=== PATIENT | female | born 1950 | race Caucasian/White ===

== ENCOUNTER 2017-08-03 11:30 | Inpatient (IN) ==
[2017-08-03] MEDS ORDERED: DILTIAZEM 100 MG VIAL.ADD IV ONE (11:48)
[2017-08-03] MEDS ORDERED: SODIUM CHLORIDE 0.9% 100 ML IV ONE (11:48)
[2017-08-03] MEDS ORDERED: ASPIRIN 325 MG TABLET PO STA (11:51)
[2017-08-03] MEDS ORDERED: DILTIAZEM 50 MG/10 ML VIAL IV STA (11:52)
[2017-08-03] MEDS ORDERED: DILTIAZEM INJ 100 MG in SODIUM CHLORIDE 0.9% 100 ML IV SCH (12:00)
[2017-08-03 12:10] LABS: Basophils # 0.1 10*3/uL (0.0-0.2); Basophils % 0.6 % (0.0-0.8); Eosinophils # 0.3 10*3/uL (0.0-0.87); Eosinophils % 3.5 % (0.00-10.9); Hematocrit 38.4 VOL% (35.7-47.0); Hemoglobin 12.2 GM/DL (12.0-16.0); Immature Granulocytes % 0.4 %; Immature Granulocytes Absolute 0.03 #; Lymphocytes # 3.3 10*3/uL (1.4-4.0); Lymphocytes % 38.9 % (21.3-54.2); Mean Corpuscular HGB Conc 31.8 GM/DL (32-36); Mean Corpuscular Hemoglobin 28 PG (27-34); Mean Corpuscular Volume 87.3 FL (87-102); Mean Platelet Volume 9.4 FL (9.6-12.0); Monocytes # 0.6 10*3/uL (0.11-0.8); Monocytes % 7.1 % (1.7-12.7); Neutrophils # 4.2 10*3/uL (1.4-7.4); Neutrophils % 49.5 % (38.7-73.9); Platelet Count 339 T/CUMM (130-400); Red Cell Distribution Width 15.9 % (9.3-17.3); White Blood Count 8.4 T/CUMM (4-12)
[2017-08-03] MEDS ORDERED: METOPROLOL TARTRATE 5 MG/5 ML VIAL IV ONE (12:16)
[2017-08-03 12:31] LABS: Calcium 9.1 MG/DL (8.5-10.1); Osmolality,Calculated 278.7 MOS/KG (273-304); Potassium 4.3 MMOL/L (3.5-5.1)
[2017-08-03] MEDS ORDERED: ASPIRIN 325 MG TABLET ONE (12:54)
[2017-08-03] MEDS ORDERED: METOPROLOL SUCCINATE XL 50 MG TABLET PO ONE (13:42)
[2017-08-03] MEDS ORDERED: ENOXAPARIN 80 MG/0.8 ML SYRINGE SUBCUT STA (13:42)
[2017-08-03] MEDS ORDERED: MAGNESIUM SULF RIDER 2 GM in PREMIX 1 EACH IV PRN (13:54)
[2017-08-03] MEDS ORDERED: MAGNESIUM SULF RIDER 4 GM in PREMIX 1 EACH IV PRN (13:54)
[2017-08-03] MEDS ORDERED: NON-FORMULARY MEDICATION (Tizanidine [Zanaflex] 4 MG) PO PRN (14:04)
[2017-08-03] MEDS ORDERED: FUROSEMIDE 20 MG TABLET PO PRN (14:04)
[2017-08-03] MEDS ORDERED: BUDESONIDE/FORMOTEROL 80-4.5 INHALER 6.9 GM INH PRN (14:04)
[2017-08-03] MEDS ORDERED: LIDOCAINE 5% PATCH TRANSDERM PRN (14:04)
[2017-08-03] MEDS ORDERED: DOCUSATE SODIUM 100 MG CAPSULE PO PRN (14:04)
[2017-08-03] MEDS ORDERED: NON-FORMULARY MEDICATION (Evolocumab [Repatha Syringe] 140 MG) SUBCUT SCH (14:15)
[2017-08-03] MEDS ORDERED: ENOXAPARIN 80 MG/0.8 ML SYRINGE SUBCUT ONE (14:42)
[2017-08-03] MEDS: GABAPENTIN 300 MG CAPSULE PO SCH ×2 (15:55→21:36)
[2017-08-03] MEDS ORDERED: tiZANidine 4 MG TABLET PO PRN (20:30)
[2017-08-03] MEDS ORDERED: MELOXICAM 7.5 MG TABLET PO SCH (21:00)
[2017-08-03] MEDS ORDERED: ESTRADIOL 0.5 MG PO SCH (21:00)
[2017-08-03] MEDS: HYDROmorphone 2 MG TABLET PO PRN (21:33)
[2017-08-03] MEDS: rOPINIRole 1 MG TABLET PO SCH (21:35)
[2017-08-03] MEDS: predniSONE 10 MG TABLET PO SCH (21:35)
[2017-08-03] MEDS: FOLIC ACID 1 MG TABLET PO SCH (21:35)
[2017-08-03] MEDS: LISINOPRIL 10 MG TABLET PO SCH (21:36)
[2017-08-03] MEDS: PANTOPRAZOLE 40 MG TABLET PO SCH (21:36)
[2017-08-03] MEDS: DULoxetine 30 MG CAPSULE PO SCH (21:36)
[2017-08-03] MEDS: MULTIVITAMIN (CENTRUM) TABLET PO SCH (21:37)
[2017-08-04] MEDS: oxyCODONE ER 10 MG TABLET PO PRN (06:02)
[2017-08-04] MEDS ORDERED: METOPROLOL SUCCINATE XL 50 MG TABLET PO SCH (09:00)
[2017-08-04] MEDS: PANTOPRAZOLE 40 MG TABLET PO SCH ×2 (09:29→20:12)
[2017-08-04] MEDS: rOPINIRole 1 MG TABLET PO SCH ×2 (09:29→20:12)
[2017-08-04] MEDS: ASPIRIN CHEW 81 MG TABLET PO SCH (09:29)
[2017-08-04] MEDS: GABAPENTIN 300 MG CAPSULE PO SCH ×3 (09:29→20:12)
[2017-08-04] MEDS ORDERED: SOTALOL 80 MG TABLET PO ONE (10:58)
[2017-08-04 16:40] LABS: Apearance,Urine CLEAR (Clear); Bilirubin,Urine Negative (Negative); Blood, Urine Negative (Negative); Glucose,Urine (UA) Negative (Negative); Ketones,Urine Negative (Negative); Nitrite,Urine Negative (Negative); Protein,Urine Negative; RBC,Urine 2 /HPF (0-4); Squamous Epithelial Cell,Urine Occasional /HPF (0-10); Urine Color Yellow (Yellow); WBC,Urine 5 /HPF (0-6)
[2017-08-04] MEDS: HYDROmorphone 2 MG TABLET PO PRN (20:11)
[2017-08-04] MEDS: DULoxetine 30 MG CAPSULE PO SCH (20:11)
[2017-08-04] MEDS: FOLIC ACID 1 MG TABLET PO SCH (20:12)
[2017-08-04] MEDS: SOTALOL 80 MG TABLET PO SCH (20:12)
[2017-08-04] MEDS: APIXABAN 5 MG TABLET PO SCH (20:12)
[2017-08-04] MEDS: LISINOPRIL 10 MG TABLET PO SCH (20:12)
[2017-08-04] MEDS: MULTIVITAMIN (CENTRUM) TABLET PO SCH (20:12)
[2017-08-04] MEDS: predniSONE 10 MG TABLET PO SCH (20:13)
[2017-08-04] MEDS ORDERED: ENOXAPARIN 40 MG/0.4 ML SYRINGE SUBCUT SCH (21:00)
[2017-08-05 04:49] LABS: Basophils % 0.3 % (0.0-0.8); Eosinophils # 0.1 10*3/uL (0.0-0.87); Eosinophils % 0.8 % (0.00-10.9); Hematocrit 36.6 VOL% (35.7-47.0); Hemoglobin 11.3 GM/DL (12.0-16.0); Immature Granulocytes % 0.4 %; Immature Granulocytes Absolute 0.04 #; Lymphocytes # 1.9 10*3/uL (1.4-4.0); Lymphocytes % 20.6 % (21.3-54.2); Mean Corpuscular HGB Conc 30.9 GM/DL (32-36); Mean Corpuscular Hemoglobin 27 PG (27-34); Mean Corpuscular Volume 88.2 FL (87-102); Mean Platelet Volume 9.5 FL (9.6-12.0); Monocytes # 0.5 10*3/uL (0.11-0.8); Neutrophils # 6.6 10*3/uL (1.4-7.4); Neutrophils % 72.9 % (38.7-73.9); Platelet Count 313 T/CUMM (130-400); Red Blood Count 4.15 MC/CUMM (3.8-5.5); White Blood Count 9.1 T/CUMM (4-12)
[2017-08-05 05:11] LABS: Calcium 9.4 MG/DL (8.5-10.1); Osmolality,Calculated 282.5 MOS/KG (273-304); Potassium 4.8 MMOL/L (3.5-5.1)
[2017-08-05] MEDS: rOPINIRole 1 MG TABLET PO SCH (08:41)
[2017-08-05] MEDS: PANTOPRAZOLE 40 MG TABLET PO SCH (08:41)
[2017-08-05] MEDS: GABAPENTIN 300 MG CAPSULE PO SCH (08:41)
[2017-08-05] MEDS: SOTALOL 80 MG TABLET PO SCH (08:41)
[2017-08-05] MEDS: APIXABAN 5 MG TABLET PO SCH (08:41)
[2017-08-05] MEDS: ASPIRIN CHEW 81 MG TABLET PO SCH (08:41)
[2017-08-05] MEDS: oxyCODONE ER 10 MG TABLET PO PRN (08:53)
[2017-08-05 14:09] VITALS: BP 113/63
[2017-08-10] MEDS ORDERED: METHOTREXATE PO SCH (09:00)
== END 2017-08-05 14:29 | disposition home or self-care (01) | DRG 310 ==
LOC: N.ED 11:30 → N.EDINP 13:54 → N.TELES 14:15
PROVIDERS: ADMIT Internal Medicine Cardiovascular Disease; ATTEND Internal Medicine Cardiovascular Disease

== ENCOUNTER 2017-11-29 02:49 | Observation (INO) ==
[2017-11-29] MEDS ORDERED: SODIUM CHLORIDE 0.9% 1,000 ML IV STA (03:32)
[2017-11-29 04:47] LABS: Basophils # 0.1 10*3/uL (0.0-0.2); Basophils % 0.8 % (0.0-0.8); Eosinophils # 0.3 10*3/uL (0.0-0.87); Hematocrit 33.3 VOL% (35.7-47.0); Hemoglobin 10.7 GM/DL (12.0-16.0); Immature Granulocytes % 0.3 %; Immature Granulocytes Absolute 0.02 #; Lymphocytes # 2.7 10*3/uL (1.4-4.0); Lymphocytes % 36.1 % (21.3-54.2); Mean Corpuscular HGB Conc 32.1 GM/DL (32-36); Mean Corpuscular Hemoglobin 29 PG (27-34); Mean Corpuscular Volume 90.2 FL (87-102); Mean Platelet Volume 9.6 FL (9.6-12.0); Monocytes # 0.8 10*3/uL (0.11-0.8); Monocytes % 10.2 % (1.7-12.7); Neutrophils # 3.7 10*3/uL (1.4-7.4); Neutrophils % 48.6 % (38.7-73.9); Platelet Count 265 T/CUMM (130-400); Red Blood Count 3.69 MC/CUMM (3.8-5.5); White Blood Count 7.6 T/CUMM (4-12)
[2017-11-29 04:57] LABS: PT Patient Result 10.4 SECS; Partial Thromboplastin Time 27.3 SECS (0-40)
[2017-11-29 05:12] LABS: Apearance,Urine CLEAR (Clear); Bilirubin,Urine Negative (Negative); Blood, Urine Negative (Negative); Glucose,Urine (UA) Negative (Negative); Hyaline Casts,Urine 3 /LPF (0-3); Ketones,Urine Negative (Negative); Mucus,Urine Occasional /LPF (Occasional); Nitrite,Urine Negative (Negative); Protein,Urine Negative; RBC,Urine 1 /HPF (0-4); Squamous Epithelial Cell,Urine Occasional /HPF (0-10); Urine Color Straw (Yellow); Urine Specific Gravity 1.009 (1.001-1.035); Urine Urobilinogen < 2.0 EU/DL (0.2-1.0)
[2017-11-29 05:17] LABS: Calcium 7.6 MG/DL (8.5-10.1)
[2017-11-29 05:18] LABS: Potassium 3.5 MMOL/L (3.5-5.1)
[2017-11-29] MEDS ORDERED: NITROGLYCERIN SL 0.4 MG TABLET SL PRN ×2 (06:45→09:57)
[2017-11-29] MEDS ORDERED: DOCUSATE SODIUM 100 MG CAPSULE PO PRN (09:57)
[2017-11-29] MEDS ORDERED: FUROSEMIDE 20 MG TABLET PO PRN (09:57)
[2017-11-29] MEDS ORDERED: HYDROmorphone 2 MG TABLET PO PRN (09:57)
[2017-11-29] MEDS ORDERED: BUDESONIDE/FORMOTEROL 80-4.5 INHALER 6.9 GM INH PRN (09:57)
[2017-11-29] MEDS ORDERED: LIDOCAINE 5% PATCH TRANSDERM PRN (09:57)
[2017-11-29] MEDS ORDERED: tiZANidine 4 MG TABLET PO PRN (09:57)
[2017-11-29] MEDS ORDERED: EVOLOCUMAB 140 MG SUBCUT SCH (10:00)
[2017-11-29] MEDS ORDERED: ERGOCALCIFEROL 50,000 UNIT CAPSULE PO SCH (10:00)
[2017-11-29] MEDS ORDERED: METHOTREXATE 2.5 MG TABLET PO SCH (10:00)
[2017-11-29] MEDS ORDERED: ALUMINUM/MAGNES/SIMETH MAX STR 30 ML UDCUP PO PRN (10:05)
[2017-11-29] MEDS ORDERED: ZALEPLON 5 MG CAPSULE PO PRN (10:05)
[2017-11-29] MEDS: GABAPENTIN 300 MG CAPSULE PO SCH ×2 (15:07→21:03)
[2017-11-29] MEDS ORDERED: ZALEPLON 5 MG CAPSULE PO SCH (21:00)
[2017-11-29] MEDS ORDERED: DULoxetine 30 MG CAPSULE PO SCH (21:00)
[2017-11-29] MEDS ORDERED: FOLIC ACID 1 MG TABLET PO SCH (21:00)
[2017-11-29] MEDS ORDERED: ESTRADIOL 1 MG TABLET PO SCH (21:00)
[2017-11-29] MEDS ORDERED: MELOXICAM 7.5 MG TABLET PO SCH (21:00)
[2017-11-29] MEDS: rOPINIRole 1 MG TABLET PO SCH (21:02)
[2017-11-29] MEDS: PANTOPRAZOLE 40 MG TABLET PO SCH (21:03)
[2017-11-29] MEDS: APIXABAN 5 MG TABLET PO SCH (21:03)
[2017-11-29] MEDS: traMADol 50 MG TABLET PO SCH (21:05)
[2017-11-30] MEDS: GABAPENTIN 300 MG CAPSULE PO SCH (08:46)
[2017-11-30] MEDS: traMADol 50 MG TABLET PO SCH (08:46)
[2017-11-30] MEDS: rOPINIRole 1 MG TABLET PO SCH (08:46)
[2017-11-30] MEDS: APIXABAN 5 MG TABLET PO SCH (08:47)
[2017-11-30] MEDS: PANTOPRAZOLE 40 MG TABLET PO SCH (08:47)
[2017-11-30] MEDS ORDERED: ASPIRIN CHEW 81 MG TABLET PO SCH (09:00)
[2017-11-30] MEDS ORDERED: CELECOXIB 200 MG CAPSULE PO SCH (09:00)
[2017-11-30 12:57] VITALS: BP 141/86
[2017-11-30] MEDS ORDERED: VERAPAMIL SR 180 MG TABLET PO SCH (13:00)
== END 2017-11-30 14:02 | disposition home or self-care (01) ==
LOC: EDBD → EDUNIT# → N.ED 02:49 → N.EDINP 02:49 → N.TELES 06:13
PROVIDERS: ADMIT Internal Medicine Cardiovascular Disease; ATTEND Internal Medicine Cardiovascular Disease

== ENCOUNTER 2019-03-31 12:19 | Inpatient (IN) ==
[2019-03-31 14:43] LABS: Apearance,Urine CLOUDY (Clear); Bacteria,Urine Occasional /HPF (Few); Bilirubin,Urine Negative (Negative); Blood, Urine Small mg/dL (Negative); Glucose,Urine (UA) Negative (Negative); Hyaline Casts,Urine 54 /LPF (0-3); Ketones,Urine Negative (Negative); Mucus,Urine Few /LPF (Occasional); Nitrite,Urine Negative (Negative); Protein,Urine 30 MG/DL; RBC,Urine 20 /HPF (0-4); Squamous Epithelial Cell,Urine Many /HPF (0-10); Urine Color Amber (Yellow); Urine Specific Gravity 1.027 (1.001-1.035); Urine Urobilinogen < 2.0 EU/DL (0.2-1.0); WBC,Urine 27 /HPF (0-6)
[2019-03-31 15:27] LABS: Basophils % 0.2 % (0.0-0.8); Eosinophils % 0.1 % (0.00-10.9); Hematocrit 52.4 VOL% (35.7-47.0); Hemoglobin 16.7 GM/DL (12.0-16.0); Immature Granulocytes % 0.5 %; Immature Granulocytes Absolute 0.09 #; Lymphocytes # 2.9 10*3/uL (1.4-4.0); Lymphocytes % 17.3 % (21.3-54.2); Mean Corpuscular HGB Conc 31.9 GM/DL (32-36); Mean Corpuscular Volume 95.6 FL (87-102); Mean Platelet Volume 10.3 FL (9.6-12.0); Monocytes % 7.9 % (1.7-12.7); Platelet Count 171 T/CUMM (130-400); Red Blood Count 5.48 MC/CUMM (3.8-5.5); Red Cell Distribution Width 14.1 % (9.3-17.3); White Blood Count 16.5 T/CUMM (4-12)
[2019-03-31] MEDS ORDERED: LEVOFLOXACIN INJ 500 MG in PREMIX 1 EACH IV STA (15:35)
[2019-03-31] MEDS ORDERED: LEVOFLOXACIN INJ 100 ML IV ONE (15:43)
[2019-03-31 15:49] LABS: Albumin 2.8 G/DL (3.4-5.0); Bilirubin,Total 0.4 MG/DL (0.2-1.0); Calcium 8.1 MG/DL (8.5-10.1); Osmolality,Calculated 280.1 MOS/KG (273-304); Total Protein 6.4 G/DL (6.4-8.3)
[2019-03-31] MEDS ORDERED: LACTATED RINGERS 1,000 ML IV ONE (16:00)
[2019-03-31] MEDS ORDERED: HYDROmorphone 2 MG/1 ML VIAL IV STA ×2 (17:19→18:13)
[2019-03-31] MEDS ORDERED: LACTATED RINGERS IV ONE (18:35)
[2019-03-31] MEDS ORDERED: DEXTROSE 50% 25 GM/50 ML VIAL IV PRN (20:09)
[2019-03-31] MEDS ORDERED: GLUCAGON 1 MG VIAL IM PRN (20:09)
[2019-03-31] MEDS ORDERED: ZOLPIDEM 5 MG TABLET PO PRN (20:22)
[2019-03-31] MEDS ORDERED: LIDOCAINE 5% PATCH TRANSDERM PRN (20:22)
[2019-03-31] MEDS ORDERED: OSELTAMIVIR 75 MG CAPSULE PO SCH (20:30)
[2019-03-31] MEDS: INSULIN LISPRO 100 UNIT/ML SUBCUT SCH (21:50)
[2019-03-31] MEDS: DULoxetine 30 MG CAPSULE PO SCH (22:08)
[2019-03-31] MEDS: ESTRADIOL 1 MG TABLET PO SCH (22:08)
[2019-03-31] MEDS: SODIUM CHLORIDE 0.9% 1,000 ML IV SCH (22:08)
[2019-03-31] MEDS: rOPINIRole 1 MG TABLET PO SCH (22:08)
[2019-03-31] MEDS: GABAPENTIN 300 MG CAPSULE PO SCH (22:08)
[2019-03-31] MEDS: PIPERACILLIN/TAZOBACTAM 3,375 MG in SODIUM CHLORIDE 0.9% 100 ML IV SCH (22:09)
[2019-03-31] MEDS: MORPHINE 4 MG/1 ML VIAL IV PRN (23:43)
[2019-04-01] MEDS: ALBUTEROL/IPRATROPIUM 3 ML NEB RESP TX SCH ×4 (00:22→18:53)
[2019-04-01 03:16] LABS: Hemoglobin 14.4 GM/DL (12.0-16.0); Immature Granulocytes % 0.3 %; Immature Granulocytes Absolute 0.05 #; Platelet Count 158 T/CUMM (130-400); Red Cell Distribution Width 13.9 % (9.3-17.3)
[2019-04-01 03:22] LABS: Basophils # 0.1 10*3/uL (0.0-0.2); Basophils % 0.3 % (0.0-0.8); Eosinophils % 0.2 % (0.00-10.9); Hematocrit 44.7 VOL% (35.7-47.0); Lymphocytes # 3.8 10*3/uL (1.4-4.0); Lymphocytes % 25.8 % (21.3-54.2); Mean Corpuscular HGB Conc 32.2 GM/DL (32-36); Mean Corpuscular Volume 94.5 FL (87-102); Mean Platelet Volume 9.4 FL (9.6-12.0); Neutrophils % 63.4 % (38.7-73.9); Red Blood Count 4.73 MC/CUMM (3.8-5.5); White Blood Count 14.7 T/CUMM (4-12)
[2019-04-01 03:41] LABS: Calcium 7.5 MG/DL (8.5-10.1); Osmolality,Calculated 278.4 MOS/KG (273-304)
[2019-04-01] MEDS: PIPERACILLIN/TAZOBACTAM 3,375 MG in SODIUM CHLORIDE 0.9% 100 ML IV SCH (05:55)
[2019-04-01] MEDS ORDERED: ZALEPLON 5 MG CAPSULE PO PRN (07:30)
[2019-04-01] MEDS: MORPHINE 4 MG/1 ML VIAL IV PRN (07:44)
[2019-04-01] MEDS: ONDANSETRON 4 MG/2 ML VIAL IV PRN ×2 (07:57→16:47)
[2019-04-01] MEDS: INSULIN LISPRO 100 UNIT/ML SUBCUT SCH ×4 (08:21→22:35)
[2019-04-01] MEDS: FEXOFENADINE 180 MG TABLET PO SCH (09:24)
[2019-04-01] MEDS: rOPINIRole 1 MG TABLET PO SCH ×2 (09:24→21:12)
[2019-04-01] MEDS: ASPIRIN CHEW 81 MG TABLET PO SCH (09:25)
[2019-04-01] MEDS: PANTOPRAZOLE 40 MG TABLET PO SCH (09:25)
[2019-04-01] MEDS: GABAPENTIN 300 MG CAPSULE PO SCH ×3 (09:25→21:11)
[2019-04-01] MEDS: VERAPAMIL SR 180 MG TABLET PO SCH (09:25)
[2019-04-01] MEDS ORDERED: PHENOL 1.4% THROAT SPRAY 177 ML BOTTLE PO PRN (10:35)
[2019-04-01] MEDS: cefTRIAXone 1,000 MG in SYRINGE 1 EACH IV SCH (10:56)
[2019-04-01] MEDS: OSELTAMIVIR 75 MG CAPSULE PO SCH ×2 (11:01→21:12)
[2019-04-01] MEDS ORDERED: IBUPROFEN 600 MG TABLET PO PRN (11:53)
[2019-04-01 12:07] LABS: Alanine Aminotransferase 54 U/L (13-56); Albumin 1.9 G/DL (3.4-5.0); Alkaline Phosphatase 71 U/L (45-117); Aspartate Amino Transferase 177 U/L (0-37); Bilirubin,Direct < 0.100 MG/DL (0.0-0.20); Bilirubin,Indirect 0.3 MG/DL (0.0-1.0); Total Protein 5.1 G/DL (6.4-8.3)
[2019-04-01] MEDS: SODIUM CHLORIDE 0.9% 1,000 ML IV SCH ×2 (14:03→22:35)
[2019-04-01] MEDS: ESTRADIOL 1 MG TABLET PO SCH (21:11)
[2019-04-01] MEDS: DULoxetine 30 MG CAPSULE PO SCH (21:11)
[2019-04-01] MEDS: ACETAMINOPHEN 325 MG TABLET PO PRN (22:36)
[2019-04-02] MEDS: ALBUTEROL/IPRATROPIUM 3 ML NEB RESP TX SCH ×3 (00:14→13:55)
[2019-04-02] MEDS: ONDANSETRON 4 MG/2 ML VIAL IV PRN ×2 (01:40→07:07)
[2019-04-02] MEDS: ACETAMINOPHEN 325 MG TABLET PO PRN (04:40)
[2019-04-02] MEDS: INSULIN LISPRO 100 UNIT/ML SUBCUT SCH ×3 (07:15→15:44)
[2019-04-02] MEDS: SODIUM CHLORIDE 0.9% 1,000 ML IV SCH ×2 (07:28→15:11)
[2019-04-02] MEDS: rOPINIRole 1 MG TABLET PO SCH (09:14)
[2019-04-02] MEDS: GABAPENTIN 300 MG CAPSULE PO SCH ×2 (09:14→15:11)
[2019-04-02] MEDS: FEXOFENADINE 180 MG TABLET PO SCH (09:14)
[2019-04-02] MEDS: PANTOPRAZOLE 40 MG TABLET PO SCH (09:15)
[2019-04-02] MEDS: VERAPAMIL SR 180 MG TABLET PO SCH (09:15)
[2019-04-02] MEDS: OSELTAMIVIR 75 MG CAPSULE PO SCH (09:15)
[2019-04-02] MEDS: cefTRIAXone 1,000 MG in SYRINGE 1 EACH IV SCH (09:15)
[2019-04-02] MEDS: ASPIRIN CHEW 81 MG TABLET PO SCH (09:15)
[2019-04-02] MEDS ORDERED: SCOPOLAMINE 1.5 MG PATCH TRANSDERM ONE (11:00)
[2019-04-02] MEDS ORDERED: PROMETHAZINE 25 MG/1 ML VIAL IM PRN (13:11)
[2019-04-02 16:19] VITALS: BP 114/68
[2019-04-03] MEDS ORDERED: METHOTREXATE 2.5 MG TABLET PO SCH (09:00)
== END 2019-04-02 19:02 | disposition home or self-care (01) | DRG 690 ==
LOC: N.ED 12:19 → N.EDINP 20:09 → N.2E 21:29
PROVIDERS: ADMIT Internal Medicine; ATTEND Internal Medicine

== ENCOUNTER 2019-04-14 12:51 | Inpatient (IN) ==
[2019-04-14] MEDS ORDERED: DILTIAZEM 50 MG/10 ML VIAL IV STA (13:33)
[2019-04-14] MEDS ORDERED: dilTIAZem Drip 125 MG/125 ML PREMIX IV ONE (13:34)
[2019-04-14] MEDS: dilTIAZem Drip 125 MG/125 ML PREMIX IV SCH ×2 (13:47→20:31)
[2019-04-14 14:04] LABS: Albumin 3.8 G/DL (3.4-5.0); Bilirubin,Total 0.9 MG/DL (0.2-1.0); Calcium 9.3 MG/DL (8.5-10.1); Osmolality,Calculated 279.4 MOS/KG (273-304); Total Protein 7.3 G/DL (6.4-8.3)
[2019-04-14 14:18] LABS: Basophils # 0.1 10*3/uL (0.0-0.2); Basophils % 1.3 % (0.0-0.8); Eosinophils # 0.2 10*3/uL (0.0-0.87); Eosinophils % 1.9 % (0.00-10.9); Hematocrit 36.2 VOL% (35.7-47.0); Hemoglobin 11.6 GM/DL (12.0-16.0); Immature Granulocytes % 0.6 %; Immature Granulocytes Absolute 0.05 #; Lymphocytes # 2.7 10*3/uL (1.4-4.0); Lymphocytes % 30.1 % (21.3-54.2); Mean Corpuscular Volume 96.3 FL (87-102); Mean Platelet Volume 9.8 FL (9.6-12.0); Monocytes % 7.6 % (1.7-12.7); Neutrophils % 58.5 % (38.7-73.9); Platelet Count 373 T/CUMM (130-400); Red Blood Count 3.76 MC/CUMM (3.8-5.5); Red Cell Distribution Width 14.4 % (9.3-17.3); White Blood Count 8.8 T/CUMM (4-12)
[2019-04-14 14:23] LABS: PT Patient Result 10.5 SECS (9.6-12.2)
[2019-04-14] MEDS ORDERED: FUROSEMIDE 40 MG/4 ML VIAL IV STA (14:35)
[2019-04-14] MEDS ORDERED: MAGNESIUM SULF RIDER 4 GM in PREMIX 1 EACH IV PRN (14:42)
[2019-04-14] MEDS ORDERED: MAGNESIUM SULF RIDER 2 GM in PREMIX 1 EACH IV PRN (14:42)
[2019-04-14] MEDS ORDERED: ZALEPLON 5 MG CAPSULE PO PRN (14:42)
[2019-04-14] MEDS ORDERED: DOCUSATE SODIUM 100 MG CAPSULE PO PRN (14:42)
[2019-04-14] MEDS ORDERED: ACETAMINOPHEN 325 MG TABLET PO PRN (14:42)
[2019-04-14] MEDS ORDERED: POTASSIUM CHLORIDE 20 MEQ TABLET PO PRN (14:57)
[2019-04-14] MEDS ORDERED: LEVALBUTEROL 0.63 MG/3 ML NEB RESP TX PRN (15:09)
[2019-04-14] MEDS ORDERED: PHENOL 1.4% THROAT SPRAY 177 ML BOTTLE PO PRN (15:13)
[2019-04-14] MEDS ORDERED: LIDOCAINE 5% PATCH TRANSDERM PRN (15:13)
[2019-04-14] MEDS ORDERED: EVOLOCUMAB 140 MG SUBCUT SCH (15:15)
[2019-04-14 16:24] LABS: Troponin I < 0.015 NG/ML (0.00-0.045)
[2019-04-14] MEDS: ASPIRIN CHEW 81 MG TABLET PO SCH (16:24)
[2019-04-14] MEDS: FUROSEMIDE 20 MG/2 ML VIAL IV SCH (16:28)
[2019-04-14] MEDS: ENOXAPARIN 100 MG/ML SYRINGE SUBCUT SCH (16:28)
[2019-04-14] MEDS: PANTOPRAZOLE 40 MG TABLET PO SCH (16:28)
[2019-04-14 19:15] LABS: Troponin I < 0.015 NG/ML (0.00-0.045)
[2019-04-14] MEDS: DULoxetine 30 MG CAPSULE PO SCH (20:23)
[2019-04-14] MEDS: ESTRADIOL 1 MG TABLET PO SCH (20:24)
[2019-04-14] MEDS: rOPINIRole 1 MG TABLET PO SCH (20:24)
[2019-04-14] MEDS: ZALEPLON 5 MG CAPSULE PO SCH (20:24)
[2019-04-14] MEDS: ASCORBIC ACID 500 MG TABLET PO SCH (20:24)
[2019-04-14] MEDS: GABAPENTIN 300 MG CAPSULE PO SCH (20:25)
[2019-04-14 21:27] LABS: Troponin I < 0.015 NG/ML (0.00-0.045)
[2019-04-14] MEDS: ONDANSETRON 4 MG/2 ML VIAL IV PRN (23:17)
[2019-04-15] MEDS: NITROGLYCERIN SL 0.4 MG TABLET SL PRN ×2 (01:19→01:25)
[2019-04-15] MEDS ORDERED: MORPHINE 4 MG/1 ML VIAL IV PRN (01:33)
[2019-04-15] MEDS: ENOXAPARIN 100 MG/ML SYRINGE SUBCUT SCH ×2 (02:03→16:13)
[2019-04-15] MEDS ORDERED: METOPROLOL SUCCINATE XL 25 MG TABLET PO ONE (02:14)
[2019-04-15 02:19] LABS: Basophils # 0.1 10*3/uL (0.0-0.2); Basophils % 0.9 % (0.0-0.8); Eosinophils # 0.3 10*3/uL (0.0-0.87); Eosinophils % 2.6 % (0.00-10.9); Hematocrit 36.5 VOL% (35.7-47.0); Hemoglobin 11.4 GM/DL (12.0-16.0); Immature Granulocytes % 0.4 %; Immature Granulocytes Absolute 0.05 #; Lymphocytes # 4.9 10*3/uL (1.4-4.0); Lymphocytes % 40.3 % (21.3-54.2); Mean Corpuscular HGB Conc 31.2 GM/DL (32-36); Mean Corpuscular Volume 97.9 FL (87-102); Mean Platelet Volume 9.1 FL (9.6-12.0); Monocytes % 8.6 % (1.7-12.7); NRBC # 0.02 10*3/uL; Neutrophils % 47.2 % (38.7-73.9); Platelet Count 374 T/CUMM (130-400); Red Blood Count 3.73 MC/CUMM (3.8-5.5); Red Cell Distribution Width 14.2 % (9.3-17.3); White Blood Count 12.2 T/CUMM (4-12)
[2019-04-15 02:45] LABS: Osmolality,Calculated 280.5 MOS/KG (273-304); Risk Ratio 7.72; VLDL CHOLESTEROL 55.2 MG/DL
[2019-04-15] MEDS ORDERED: METOPROLOL TARTRATE 5 MG/5 ML VIAL IV ONE (03:27)
[2019-04-15] MEDS ORDERED: PANTOPRAZOLE 40 MG TABLET PO ONE (03:28)
[2019-04-15] MEDS ORDERED: diphenhydrAMINE 50 MG/1 ML VIAL IV ONE (03:28)
[2019-04-15] MEDS: ONDANSETRON 4 MG/2 ML VIAL IV PRN ×2 (05:54→11:45)
[2019-04-15] MEDS: dilTIAZem Drip 125 MG/125 ML PREMIX IV SCH (07:25)
[2019-04-15] MEDS: FUROSEMIDE 20 MG/2 ML VIAL IV SCH ×2 (09:07→16:14)
[2019-04-15] MEDS: rOPINIRole 1 MG TABLET PO SCH ×2 (09:07→20:32)
[2019-04-15] MEDS: PANTOPRAZOLE 40 MG TABLET PO SCH (09:08)
[2019-04-15] MEDS: SPIRONOLACTONE 25 MG TABLET PO SCH (09:08)
[2019-04-15] MEDS: DULoxetine 30 MG CAPSULE PO SCH ×2 (09:08→20:32)
[2019-04-15] MEDS: ASCORBIC ACID 500 MG TABLET PO SCH ×2 (09:09→20:34)
[2019-04-15] MEDS: VERAPAMIL SR 180 MG TABLET PO SCH (09:09)
[2019-04-15] MEDS: ASPIRIN CHEW 81 MG TABLET PO SCH (09:09)
[2019-04-15] MEDS: GABAPENTIN 300 MG CAPSULE PO SCH ×2 (09:10→20:33)
[2019-04-15] MEDS: FOLIC ACID 1 MG TABLET PO SCH (09:15)
[2019-04-15] MEDS ORDERED: POTASSIUM CHLORIDE RIDER 10 MEQ in PREMIX 1 EACH IV PRN (14:13)
[2019-04-15] MEDS ORDERED: MAGNESIUM SULF RIDER 2 GM in PREMIX 1 EACH IV PRN (14:13)
[2019-04-15] MEDS ORDERED: diphenhydrAMINE CAP 25 MG CAPSULE PO ONE (14:13)
[2019-04-15] MEDS ORDERED: DIAZEPAM 5 MG TABLET PO ONE (14:13)
[2019-04-15] MEDS ORDERED: SODIUM CHLORIDE 0.45% 1,000 ML IV SCH (14:30)
[2019-04-15] MEDS ORDERED: LIDOCAINE 1% 20 ML VIAL ONE (14:57)
[2019-04-15] MEDS ORDERED: MIDAZOLAM 2 MG/2 ML VIAL ONE (15:00)
[2019-04-15] MEDS ORDERED: fentaNYL 100 MCG/2 ML VIAL ONE (15:00)
[2019-04-15] MEDS ORDERED: ADENOSINE 90 MG/30 ML VIAL IV ONE (15:44)
[2019-04-15] MEDS ORDERED: HEPARIN 5,000 UNIT/1 ML VIAL ONE (15:48)
[2019-04-15] MEDS: ESTRADIOL 1 MG TABLET PO SCH (20:33)
[2019-04-15] MEDS: ZALEPLON 5 MG CAPSULE PO SCH (20:34)
[2019-04-16] MEDS: dilTIAZem Drip 125 MG/125 ML PREMIX IV SCH (01:17)
[2019-04-16 05:48] LABS: Basophils # 0.1 10*3/uL (0.0-0.2); Basophils % 0.8 % (0.0-0.8); Eosinophils # 0.4 10*3/uL (0.0-0.87); Eosinophils % 5.7 % (0.00-10.9); Hematocrit 32.5 VOL% (35.7-47.0); Hemoglobin 10.2 GM/DL (12.0-16.0); Immature Granulocytes % 0.4 %; Immature Granulocytes Absolute 0.03 #; Lymphocytes # 2.5 10*3/uL (1.4-4.0); Lymphocytes % 32.2 % (21.3-54.2); Mean Corpuscular HGB Conc 31.4 GM/DL (32-36); Mean Corpuscular Volume 97.3 FL (87-102); Mean Platelet Volume 9.7 FL (9.6-12.0); Monocytes % 9.9 % (1.7-12.7); Platelet Count 328 T/CUMM (130-400); Red Blood Count 3.34 MC/CUMM (3.8-5.5); Red Cell Distribution Width 14.2 % (9.3-17.3); White Blood Count 7.8 T/CUMM (4-12)
[2019-04-16 06:20] LABS: Albumin 2.9 G/DL (3.4-5.0); Bilirubin,Total 0.6 MG/DL (0.2-1.0); Calcium 8.1 MG/DL (8.5-10.1); Osmolality,Calculated 278.8 MOS/KG (273-304); Total Protein 6.2 G/DL (6.4-8.3)
[2019-04-16] MEDS: DULoxetine 30 MG CAPSULE PO SCH (09:31)
[2019-04-16] MEDS: rOPINIRole 1 MG TABLET PO SCH (09:31)
[2019-04-16] MEDS: VERAPAMIL SR 180 MG TABLET PO SCH (09:31)
[2019-04-16] MEDS: ASPIRIN CHEW 81 MG TABLET PO SCH (09:31)
[2019-04-16] MEDS: FOLIC ACID 1 MG TABLET PO SCH (09:32)
[2019-04-16] MEDS: ASCORBIC ACID 500 MG TABLET PO SCH (09:32)
[2019-04-16] MEDS: GABAPENTIN 300 MG CAPSULE PO SCH (09:32)
[2019-04-16] MEDS: PANTOPRAZOLE 40 MG TABLET PO SCH (09:32)
[2019-04-16] MEDS: FUROSEMIDE 20 MG/2 ML VIAL IV SCH (09:32)
[2019-04-16] MEDS: SPIRONOLACTONE 25 MG TABLET PO SCH (09:32)
[2019-04-16 11:17] VITALS: BP 128/66
[2019-04-17] MEDS ORDERED: METHOTREXATE 2.5 MG TABLET PO SCH (15:13)
== END 2019-04-16 12:30 | disposition home or self-care (01) | DRG 286 ==
LOC: EDBD → EDUNIT# → N.ED 12:51 → N.EDINP 12:51 → N.TELEN 15:17
PROVIDERS: ADMIT Internal Medicine Cardiovascular Disease; ATTEND Internal Medicine Cardiovascular Disease
PROC: CLCCHCL (ICD-10-PCS; 2019-04-15 14:15)

== ENCOUNTER 2019-04-29 22:37 | Observation (INO) ==
[2019-04-29] MEDS ORDERED: MAGNESIUM SULF RIDER 2 GM in PREMIX 1 EACH IV PRN (22:50)
[2019-04-29] MEDS ORDERED: ONDANSETRON 4 MG/2 ML VIAL IV PRN (22:50)
[2019-04-29] MEDS ORDERED: ZALEPLON 5 MG CAPSULE PO PRN (22:50)
[2019-04-29] MEDS ORDERED: BISACODYL 5 MG TABLET PO PRN (22:50)
[2019-04-29] MEDS ORDERED: MAGNESIUM SULF RIDER 4 GM in PREMIX 1 EACH IV PRN (22:50)
[2019-04-29] MEDS ORDERED: ENOXAPARIN 40 MG/0.4 ML SYRINGE SUBCUT SCH (23:00)
[2019-04-29] MEDS ORDERED: NITROGLYCERIN SL 0.4 MG TABLET SL PRN (23:04)
[2019-04-30] MEDS ORDERED: tiZANidine 4 MG TABLET PO PRN ×2 (00:48→09:50)
[2019-04-30] MEDS ORDERED: AMITRIPTYLINE 50 MG TABLET PO SCH (00:53)
[2019-04-30 00:59] LABS: CKMB % 1.7 %; Troponin I < 0.015 NG/ML (0.00-0.045)
[2019-04-30] MEDS ORDERED: ENOXAPARIN 100 MG/ML SYRINGE SUBCUT SCH ×2 (01:00→03:00)
[2019-04-30] MEDS: rOPINIRole 1 MG TABLET PO SCH ×3 (01:09→20:23)
[2019-04-30] MEDS: DULoxetine 30 MG CAPSULE PO SCH ×3 (01:11→20:16)
[2019-04-30] MEDS: GABAPENTIN 300 MG CAPSULE PO SCH ×3 (01:12→20:16)
[2019-04-30] MEDS: ESTRADIOL 1 MG TABLET PO SCH ×2 (02:10→09:54)
[2019-04-30 02:21] LABS: Apearance,Urine CLEAR (Clear); Bilirubin,Urine Negative (Negative); Blood, Urine Negative (Negative); Glucose,Urine (UA) Negative (Negative); Ketones,Urine Negative (Negative); Nitrite,Urine Negative (Negative); Protein,Urine Negative; RBC,Urine <1 /HPF (0-4); Squamous Epithelial Cell,Urine Occasional /HPF (0-10); Urine Color Yellow (Yellow); Urine Specific Gravity 1.017 (1.001-1.035); Urine Urobilinogen < 2.0 EU/DL (0.2-1.0); WBC,Urine 1 /HPF (0-6)
[2019-04-30 02:59] LABS: Basophils # 0.1 10*3/uL (0.0-0.2); Basophils % 0.6 % (0.0-0.8); Eosinophils # 0.4 10*3/uL (0.0-0.87); Eosinophils % 4.5 % (0.00-10.9); Hematocrit 35.9 VOL% (35.7-47.0); Hemoglobin 11.2 GM/DL (12.0-16.0); Immature Granulocytes % 0.4 %; Immature Granulocytes Absolute 0.03 #; Lymphocytes # 3.3 10*3/uL (1.4-4.0); Lymphocytes % 40.8 % (21.3-54.2); Mean Corpuscular HGB Conc 31.2 GM/DL (32-36); Mean Corpuscular Volume 95.5 FL (87-102); Mean Platelet Volume 9.4 FL (9.6-12.0); Neutrophils % 41.7 % (38.7-73.9); Platelet Count 212 T/CUMM (130-400); Red Blood Count 3.76 MC/CUMM (3.8-5.5); Red Cell Distribution Width 13.8 % (9.3-17.3); White Blood Count 8.1 T/CUMM (4-12)
[2019-04-30] MEDS ORDERED: ALBUTEROL 2.5 MG/3 ML NEB RESP TX PRN (03:00)
[2019-04-30 03:23] LABS: Albumin 3.1 G/DL (3.4-5.0); Bilirubin,Total 0.4 MG/DL (0.2-1.0); Calcium 8.7 MG/DL (8.5-10.1); Osmolality,Calculated 279.5 MOS/KG (273-304); Risk Ratio 7.1; Total Protein 6.3 G/DL (6.4-8.3); VLDL CHOLESTEROL 54.2 MG/DL
[2019-04-30 03:24] LABS: CKMB % 1.7 %; Troponin I < 0.015 NG/ML (0.00-0.045)
[2019-04-30 06:47] LABS: CKMB % 1.7 %; Troponin I < 0.015 NG/ML (0.00-0.045)
[2019-04-30] MEDS ORDERED: ROPINIROLE 2 MG PO SCH (09:00)
[2019-04-30] MEDS ORDERED: FLUTICASONE/SALMETEROL 100-50 DISKUS 14 DOSE INH PRN ×2 (09:00→09:50)
[2019-04-30] MEDS: dilTIAZem Drip 125 MG/125 ML PREMIX IV SCH (09:21)
[2019-04-30] MEDS ORDERED: FUROSEMIDE 20 MG TABLET PO PRN (09:50)
[2019-04-30] MEDS ORDERED: LIDOCAINE 5% PATCH TRANSDERM PRN (09:50)
[2019-04-30] MEDS ORDERED: PHENOL 1.4% THROAT SPRAY 177 ML BOTTLE PO PRN (09:50)
[2019-04-30] MEDS: ASPIRIN CHEW 81 MG TABLET PO SCH (09:53)
[2019-04-30] MEDS: DRONEDARONE 400 MG TABLET PO SCH ×2 (09:54→17:14)
[2019-04-30] MEDS: PANTOPRAZOLE 40 MG TABLET PO SCH (09:54)
[2019-04-30] MEDS ORDERED: EVOLOCUMAB 140 MG SUBCUT SCH (10:00)
[2019-04-30] MEDS: ASCORBIC ACID 500 MG TABLET PO SCH ×2 (11:23→20:16)
[2019-04-30] MEDS: VERAPAMIL SR 120 MG TABLET PO SCH (11:23)
[2019-04-30] MEDS: APIXABAN 5 MG TABLET PO SCH (20:16)
[2019-04-30] MEDS ORDERED: ESTRADIOL 1 MG TABLET PO SCH (21:00)
[2019-05-01] MEDS: dilTIAZem Drip 125 MG/125 ML PREMIX IV SCH (02:38)
[2019-05-01 05:27] LABS: Basophils # 0.1 10*3/uL (0.0-0.2); Basophils % 0.7 % (0.0-0.8); Eosinophils # 0.5 10*3/uL (0.0-0.87); Eosinophils % 6.5 % (0.00-10.9); Hematocrit 35.9 VOL% (35.7-47.0); Hemoglobin 11.3 GM/DL (12.0-16.0); Immature Granulocytes % 0.4 %; Immature Granulocytes Absolute 0.03 #; Mean Corpuscular HGB Conc 31.5 GM/DL (32-36); Mean Platelet Volume 9.4 FL (9.6-12.0); Neutrophils % 43.4 % (38.7-73.9); Platelet Count 218 T/CUMM (130-400); Red Blood Count 3.74 MC/CUMM (3.8-5.5); White Blood Count 7.5 T/CUMM (4-12)
[2019-05-01 05:55] LABS: Calcium 8.8 MG/DL (8.5-10.1); Osmolality,Calculated 279.4 MOS/KG (273-304)
[2019-05-01] MEDS ORDERED: FOLIC ACID 1 MG TABLET PO SCH (09:00)
[2019-05-01] MEDS ORDERED: SPIRONOLACTONE 25 MG TABLET PO SCH (09:00)
[2019-05-01] MEDS: PANTOPRAZOLE 40 MG TABLET PO SCH (09:02)
[2019-05-01] MEDS: GABAPENTIN 300 MG CAPSULE PO SCH (09:02)
[2019-05-01] MEDS: ASPIRIN CHEW 81 MG TABLET PO SCH (09:02)
[2019-05-01] MEDS: DULoxetine 30 MG CAPSULE PO SCH (09:02)
[2019-05-01] MEDS: ESTRADIOL 1 MG TABLET PO SCH (09:03)
[2019-05-01] MEDS: ASCORBIC ACID 500 MG TABLET PO SCH (09:04)
[2019-05-01] MEDS: rOPINIRole 1 MG TABLET PO SCH (09:04)
[2019-05-01] MEDS: DRONEDARONE 400 MG TABLET PO SCH ×2 (09:04→16:50)
[2019-05-01] MEDS: VERAPAMIL SR 120 MG TABLET PO SCH (09:05)
[2019-05-01] MEDS: APIXABAN 5 MG TABLET PO SCH (09:05)
[2019-05-01] MEDS ORDERED: METHOTREXATE 2.5 MG TABLET PO SCH (09:50)
[2019-05-01 16:31] VITALS: BP 132/62
== END 2019-05-01 17:27 | disposition home or self-care (01) ==
LOC: N.TELEN
PROVIDERS: ADMIT Internal Medicine Cardiovascular Disease; ATTEND Internal Medicine Cardiovascular Disease

== ENCOUNTER 2021-10-01 05:36 | Inpatient (IN) ==
[2021-09-27 12:38] LABS: Bilirubin,Urine Negative (Negative); Blood, Urine Negative (Negative); Glucose,Urine (UA) Negative (Negative); Ketones,Urine Negative (Negative); Mucus,Urine Occasional /LPF (Occasional); Nitrite,Urine Negative (Negative); Protein,Urine Negative (Negative); RBC,Urine 1 /HPF (0-4); Squamous Epithelial Cell,Urine Occasional /HPF (0-10); Urine Appearance Clear (Clear); Urine Color Yellow (Yellow); Urine Urobilinogen 0.2 eU/dL (<2.0); Urine pH 5.5 (4.5-8.0)
[2021-09-27 12:42] LABS: Basophils # 0.1 10*3/uL (0.0-0.2); Basophils % 0.7 % (0.0-0.8); Eosinophils # 0.2 10*3/uL (0.0-0.87); Eosinophils % 2.6 % (0.00-10.9); Hematocrit 39.8 VOL% (35.7-47.0); Hemoglobin 12.6 GM/DL (12.0-16.0); Immature Granulocytes % 0.3 %; Immature Granulocytes Absolute 0.02 #; Lymphocytes # 2.9 10*3/uL (1.4-4.0); Lymphocytes % 37.8 % (21.3-54.2); Mean Corpuscular HGB Conc 31.7 GM/DL (32-36); Mean Corpuscular Volume 91.3 FL (87-102); Mean Platelet Volume 9.7 FL (9.6-12.0); Monocytes # 0.7 10*3/uL (0.11-0.8); Monocytes % 9.4 % (1.7-12.7); Neutrophils % 49.2 % (38.7-73.9); Platelet Count 315 T/CUMM (130-400); Red Blood Count 4.36 MC/CUMM (3.8-5.5); Red Cell Distribution Width 13.7 % (9.3-17.3); White Blood Count 7.7 T/CUMM (4-12)
[2021-09-27 12:55] LABS: INR 0.9; PT Patient Result 10.5 SECS (10.5-12.0); Partial Thromboplastin Time 28.4 SECS (23.8-32.1)
[2021-09-27 13:03] LABS: Alanine Aminotransferase 36 U/L (13-56); Albumin 3.6 G/DL (3.4-5.0); Alkaline Phosphatase 118 U/L (45-117); Aspartate Amino Transferase 26 U/L (0-37); Bilirubin,Total < 0.39 MG/DL (0.20-1.00); Blood Urea Nitrogen 16 MG/DL (7-18); Calcium 9.1 MG/DL (8.5-10.1); Carbon Dioxide 29 MMOL/L (21-32); Chloride 104 MMOL/L (98-107); Estimated Glom Filtration Rate 102 ML/MIN; Glucose 73 MG/DL (74-106); Osmolality,Calculated 278.4 MOS/KG (273-304); Potassium 4.4 MMOL/L (3.5-5.1); Sodium 140 MMOL/L (136-145); Total Protein 7.4 G/DL (6.4-8.2)
[2021-10-01] MEDS ORDERED: VANCOMYCIN INJ 1,000 MG in SODIUM CHLORIDE 0.9% 250 ML IV ONE (06:30)
[2021-10-01] MEDS ORDERED: FAMOTIDINE 20 MG TABLET PO ONE (08:00)
[2021-10-01] MEDS ORDERED: GABAPENTIN 400 MG CAPSULE PO ONE (08:00)
[2021-10-01] MEDS ORDERED: ACETAMINOPHEN 500 MG TABLET PO ONE (08:00)
[2021-10-01] MEDS ORDERED: DIAZEPAM 5 MG TABLET PO ONE (08:00)
[2021-10-01] MEDS ORDERED: LACTATED RINGERS 1,000 ML IV SCH (08:00)
[2021-10-01] MEDS ORDERED: ONDANSETRON 4 MG/2 ML VIAL IV PRN ×2 (12:31→14:29)
[2021-10-01] MEDS ORDERED: MAGNESIUM HYDROXIDE SUSP 30 ML UDCUP PO PRN (12:31)
[2021-10-01] MEDS ORDERED: LACTULOSE 20 GM/30 ML UDCUP PO PRN (12:31)
[2021-10-01] MEDS ORDERED: PROMETHAZINE 25 MG/1 ML VIAL IM PRN (12:31)
[2021-10-01] MEDS ORDERED: BISACODYL 10 MG SUPP RECTAL PRN (12:31)
[2021-10-01] MEDS ORDERED: FLUTICASONE/SALMETEROL 100-50 DISKUS 14 DOSE INH PRN (12:34)
[2021-10-01] MEDS ORDERED: NITROGLYCERIN SL 0.4 MG TABLET SL PRN (12:34)
[2021-10-01] MEDS ORDERED: MORPHINE 2 MG/1 ML SYRINGE IV PRN (12:42)
[2021-10-01] MEDS ORDERED: HYDROmorphone 1 MG/1 ML SYRINGE ONE (14:23)
[2021-10-01] MEDS: HYDROmorphone 1 MG/1 ML SYRINGE IV PRN ×4 (14:25→15:05)
[2021-10-01] MEDS ORDERED: ALBUTEROL 2.5 MG/3 ML NEB RESP TX PRN (14:32)
[2021-10-01] MEDS ORDERED: ALBUTEROL/IPRATROPIUM 3 ML NEB RESP TX ONE (14:54)
[2021-10-01] MEDS: GABAPENTIN 300 MG CAPSULE PO SCH ×2 (16:53→21:11)
[2021-10-01] MEDS: ceFAZolin 2,000 MG/50 ML DUPLEX IV SCH (18:34)
[2021-10-01] MEDS: MORPHINE 2 MG/1 ML SYRINGE IV PRN (21:09)
[2021-10-01] MEDS: DOCUSATE SODIUM 100 MG CAPSULE PO SCH (21:10)
[2021-10-01] MEDS: tiZANidine 4 MG TABLET PO PRN (21:10)
[2021-10-01] MEDS: APIXABAN 5 MG TABLET PO SCH (21:10)
[2021-10-01] MEDS: DULoxetine 30 MG CAPSULE PO SCH (21:11)
[2021-10-01] MEDS: diphenhydrAMINE CAP 25 MG CAPSULE PO PRN (21:52)
[2021-10-01] MEDS: TEMAZEPAM 7.5 MG CAPSULE PO PRN (22:59)
[2021-10-02] MEDS: MORPHINE 2 MG/1 ML SYRINGE IV PRN ×4 (00:11→18:12)
[2021-10-02] MEDS: TEMAZEPAM 7.5 MG CAPSULE PO PRN ×2 (00:13→21:27)
[2021-10-02] MEDS: ceFAZolin 2,000 MG/50 ML DUPLEX IV SCH (01:01)
[2021-10-02 05:40] LABS: Basophils % 0.3 % (0.0-0.8); Hematocrit 28.2 VOL% (35.7-47.0); Hemoglobin 9.1 GM/DL (12.0-16.0); Immature Granulocytes % 0.5 %; Immature Granulocytes Absolute 0.07 #; Lymphocytes # 2.6 10*3/uL (1.4-4.0); Lymphocytes % 19.5 % (21.3-54.2); Mean Corpuscular HGB Conc 32.3 GM/DL (32-36); Mean Corpuscular Volume 91.9 FL (87-102); Mean Platelet Volume 9.2 FL (9.6-12.0); Monocytes % 7.5 % (1.7-12.7); Neutrophils % 72.2 % (38.7-73.9); Platelet Count 240 T/CUMM (130-400); Red Blood Count 3.07 MC/CUMM (3.8-5.5); White Blood Count 13.4 T/CUMM (4-12)
[2021-10-02 06:10] LABS: Osmolality,Calculated 275.1 MOS/KG (273-304); Potassium 4.9 MMOL/L (3.5-5.1)
[2021-10-02] MEDS: ASPIRIN EC 81 MG TABLET PO SCH (08:27)
[2021-10-02] MEDS: GABAPENTIN 300 MG CAPSULE PO SCH ×3 (08:27→21:27)
[2021-10-02] MEDS: DOCUSATE SODIUM 100 MG CAPSULE PO SCH ×2 (08:27→21:27)
[2021-10-02] MEDS: DULoxetine 30 MG CAPSULE PO SCH ×2 (08:27→21:27)
[2021-10-02] MEDS: VALSARTAN 80 MG TABLET PO SCH (08:27)
[2021-10-02] MEDS: APIXABAN 5 MG TABLET PO SCH ×2 (08:27→21:27)
[2021-10-02] MEDS: LEVALBUTEROL 0.63 MG/3 ML NEB RESP TX SCH ×4 (11:21→23:50)
[2021-10-02] MEDS: DRONEDARONE 400 MG TABLET PO SCH ×2 (12:06→18:13)
[2021-10-02] MEDS: tiZANidine 4 MG TABLET PO PRN (19:49)
[2021-10-02] MEDS: VERAPAMIL SR 180 MG TABLET PO SCH (21:27)
[2021-10-03] MEDS: MORPHINE 2 MG/1 ML SYRINGE IV PRN ×3 (00:39→10:50)
[2021-10-03] MEDS: ZALEPLON 5 MG CAPSULE PO PRN (00:41)
[2021-10-03] MEDS: diphenhydrAMINE CAP 25 MG CAPSULE PO PRN (00:41)
[2021-10-03] MEDS: LEVALBUTEROL 0.63 MG/3 ML NEB RESP TX SCH ×2 (04:06→07:28)
[2021-10-03 05:32] LABS: Basophils % 0.3 % (0.0-0.8); Eosinophils # 0.2 10*3/uL (0.0-0.87); Eosinophils % 1.6 % (0.00-10.9); Immature Granulocytes % 0.5 %; Immature Granulocytes Absolute 0.07 #; Lymphocytes # 3.8 10*3/uL (1.4-4.0); Lymphocytes % 27.1 % (21.3-54.2); Mean Corpuscular Volume 91.5 FL (87-102); Mean Platelet Volume 9.2 FL (9.6-12.0); Monocytes # 1.2 10*3/uL (0.11-0.8); Monocytes % 8.3 % (1.7-12.7); Neutrophils % 62.2 % (38.7-73.9); Platelet Count 237 T/CUMM (130-400); Red Blood Count 3.17 MC/CUMM (3.8-5.5); White Blood Count 14.1 T/CUMM (4-12)
[2021-10-03] MEDS: APIXABAN 5 MG TABLET PO SCH ×2 (08:15→21:09)
[2021-10-03] MEDS: DOCUSATE SODIUM 100 MG CAPSULE PO SCH ×2 (08:15→21:09)
[2021-10-03] MEDS: DRONEDARONE 400 MG TABLET PO SCH ×2 (08:15→17:15)
[2021-10-03] MEDS: DULoxetine 30 MG CAPSULE PO SCH ×2 (08:15→21:09)
[2021-10-03] MEDS: VALSARTAN 80 MG TABLET PO SCH (08:15)
[2021-10-03] MEDS: GABAPENTIN 300 MG CAPSULE PO SCH ×3 (08:15→21:09)
[2021-10-03] MEDS: VERAPAMIL SR 180 MG TABLET PO SCH ×2 (08:15→21:09)
[2021-10-03] MEDS: ASPIRIN EC 81 MG TABLET PO SCH (08:15)
[2021-10-03] MEDS: FUROSEMIDE 20 MG TABLET PO PRN (14:49)
[2021-10-03] MEDS: LEVALBUTEROL 0.63 MG/3 ML NEB RESP TX PRN (15:06)
[2021-10-04] MEDS: VERAPAMIL SR 180 MG TABLET PO SCH ×2 (09:11→20:30)
[2021-10-04] MEDS: VALSARTAN 80 MG TABLET PO SCH (09:11)
[2021-10-04] MEDS: GABAPENTIN 300 MG CAPSULE PO SCH ×3 (09:11→20:30)
[2021-10-04] MEDS: ASPIRIN EC 81 MG TABLET PO SCH (09:11)
[2021-10-04] MEDS: APIXABAN 5 MG TABLET PO SCH ×2 (09:11→20:30)
[2021-10-04] MEDS: DRONEDARONE 400 MG TABLET PO SCH ×2 (09:11→16:28)
[2021-10-04] MEDS: DULoxetine 30 MG CAPSULE PO SCH ×2 (09:11→20:30)
[2021-10-04] MEDS: DOCUSATE SODIUM 100 MG CAPSULE PO SCH ×2 (09:18→20:30)
[2021-10-04 15:41] LABS: Bacteria,Urine Occasional /HPF (Few); Hyaline Casts,Urine 1 /LPF (0-3); Mucus,Urine Occasional /LPF (Occasional); RBC,Urine 2 /HPF (0-4); Squamous Epithelial Cell,Urine Occasional /HPF (0-10); Urine Appearance Clear (Clear); Urine Color Yellow (Yellow)
[2021-10-04 15:42] LABS: Bilirubin,Urine Negative (Negative); Blood, Urine Negative (Negative); Glucose,Urine (UA) Negative (Negative); Ketones,Urine Negative (Negative); Nitrite,Urine Negative (Negative); Protein,Urine Negative (Negative); Urine Specific Gravity 1.015 (1.001-1.035); Urine Urobilinogen 0.2 eU/dL (<2.0)
[2021-10-04 16:37] LABS: Basophils % 0.3 % (0.0-0.8); Eosinophils # 0.4 10*3/uL (0.0-0.87); Eosinophils % 2.6 % (0.00-10.9); Hematocrit 25.4 VOL% (35.7-47.0); Hemoglobin 7.8 GM/DL (12.0-16.0); Immature Granulocytes % 0.8 %; Immature Granulocytes Absolute 0.11 #; Lymphocytes # 3.2 10*3/uL (1.4-4.0); Lymphocytes % 23.4 % (21.3-54.2); Mean Corpuscular HGB Conc 30.7 GM/DL (32-36); Mean Corpuscular Volume 94.1 FL (87-102); Mean Platelet Volume 9.1 FL (9.6-12.0); Monocytes % 7.4 % (1.7-12.7); Neutrophils % 65.5 % (38.7-73.9); Platelet Count 247 T/CUMM (130-400); Red Cell Distribution Width 14.5 % (9.3-17.3); White Blood Count 13.7 T/CUMM (4-12)
[2021-10-04 17:01] LABS: Calcium 8.2 MG/DL (8.5-10.1); Osmolality,Calculated 279.2 MOS/KG (273-304); Potassium 4.6 MMOL/L (3.5-5.1)
[2021-10-04] MEDS: POLYETHYLENE GLYCOL POWDER 17 GM PACK PO SCH (18:29)
[2021-10-04 18:40] LABS: Folate 9.36 NG/ML (5.38-24.0)
[2021-10-04 18:45] LABS: Basophils % 0.2 % (0.0-0.8); Eosinophils # 0.3 10*3/uL (0.0-0.87); Eosinophils % 2.4 % (0.00-10.9); Hematocrit 25.1 VOL% (35.7-47.0); Hemoglobin 7.7 GM/DL (12.0-16.0); Immature Granulocytes % 0.6 %; Immature Granulocytes Absolute 0.09 #; Lymphocytes # 3.2 10*3/uL (1.4-4.0); Lymphocytes % 23.2 % (21.3-54.2); Mean Corpuscular HGB Conc 30.7 GM/DL (32-36); Mean Corpuscular Volume 93.3 FL (87-102); Monocytes # 1.1 10*3/uL (0.11-0.8); Monocytes % 7.6 % (1.7-12.7); Platelet Count 248 T/CUMM (130-400); Red Blood Count 2.69 MC/CUMM (3.8-5.5); Red Cell Distribution Width 14.4 % (9.3-17.3); White Blood Count 13.9 T/CUMM (4-12)
[2021-10-04 19:07] LABS: % Iron Saturation 6.2 % (18-50)
[2021-10-04 19:22] LABS: Vitamin B12 242 PG/ML (211-911)
[2021-10-04 20:00] LABS: Anemia Profile Interpretation 104
[2021-10-04] MEDS: LACTATED RINGERS 1,000 ML IV SCH (20:30)
[2021-10-04] MEDS ORDERED: SODIUM CHLORIDE 0.9% 1,000 ML IV PRN (21:02)
[2021-10-04 21:23] LABS: Hematocrit 24.5 VOL% (35.7-47.0); Hemoglobin 7.9 GM/DL (12.0-16.0)
[2021-10-05] MEDS: ACETAMINOPHEN 325 MG TABLET PO PRN (03:50)
[2021-10-05 05:06] LABS: Basophils % 0.3 % (0.0-0.8); Eosinophils # 0.3 10*3/uL (0.0-0.87); Eosinophils % 2.7 % (0.00-10.9); Hematocrit 27.3 VOL% (35.7-47.0); Hemoglobin 8.5 GM/DL (12.0-16.0); Immature Granulocytes % 0.7 %; Immature Granulocytes Absolute 0.09 #; Lymphocytes # 3.3 10*3/uL (1.4-4.0); Lymphocytes % 26.3 % (21.3-54.2); Mean Corpuscular HGB Conc 31.1 GM/DL (32-36); Mean Corpuscular Volume 91.3 FL (87-102); Mean Platelet Volume 9.1 FL (9.6-12.0); Monocytes % 7.8 % (1.7-12.7); Neutrophils % 62.2 % (38.7-73.9); Platelet Count 234 T/CUMM (130-400); Red Blood Count 2.99 MC/CUMM (3.8-5.5); Red Cell Distribution Width 14.5 % (9.3-17.3); White Blood Count 12.4 T/CUMM (4-12)
[2021-10-05 05:27] LABS: Albumin 2.4 G/DL (3.4-5.0); Bilirubin,Total 0.7 MG/DL (0.20-1.00); Calcium 8.5 MG/DL (8.5-10.1); Osmolality,Calculated 280.2 MOS/KG (273-304); Potassium 4.2 MMOL/L (3.5-5.1)
[2021-10-05] MEDS: ASPIRIN EC 81 MG TABLET PO SCH (09:18)
[2021-10-05] MEDS: POLYETHYLENE GLYCOL POWDER 17 GM PACK PO SCH (09:18)
[2021-10-05] MEDS: APIXABAN 5 MG TABLET PO SCH ×2 (09:18→20:35)
[2021-10-05] MEDS: GABAPENTIN 300 MG CAPSULE PO SCH ×3 (09:18→20:35)
[2021-10-05] MEDS: DRONEDARONE 400 MG TABLET PO SCH ×2 (09:18→16:05)
[2021-10-05] MEDS: DOCUSATE SODIUM 100 MG CAPSULE PO SCH ×2 (09:18→20:35)
[2021-10-05] MEDS: DULoxetine 30 MG CAPSULE PO SCH ×2 (09:18→20:35)
[2021-10-05] MEDS: VALSARTAN 80 MG TABLET PO SCH ×2 (09:18→09:33)
[2021-10-05] MEDS: VERAPAMIL SR 180 MG TABLET PO SCH ×3 (09:18→20:35)
[2021-10-05 09:26] LABS: Hemoglobin A1 (Alkaline) 97.8 % (96.5-98.5); Hemoglobin A2 (Alkaline) 2.2 % (1.5-3.5)
[2021-10-05] MEDS: CHOLECALCIFEROL 5,000 UNIT TABLET PO SCH (12:08)
[2021-10-05] MEDS: FERROUS SULFATE 325 MG TABLET PO SCH (16:05)
[2021-10-05] MEDS ORDERED: CYANOCOBALAMIN 500 MCG TABLET PO ONE (18:00)
[2021-10-05] MEDS: LACTATED RINGERS 1,000 ML IV SCH (20:35)
[2021-10-06] MEDS: traMADol 50 MG TABLET PO PRN (05:35)
[2021-10-06 08:37] LABS: Basophils % 0.3 % (0.0-0.8); Eosinophils # 0.4 10*3/uL (0.0-0.87); Eosinophils % 3.5 % (0.00-10.9); Hematocrit 25.5 VOL% (35.7-47.0); Hemoglobin 7.9 GM/DL (12.0-16.0); Immature Granulocytes % 0.6 %; Immature Granulocytes Absolute 0.07 #; Lymphocytes # 2.3 10*3/uL (1.4-4.0); Lymphocytes % 20.7 % (21.3-54.2); Mean Corpuscular Volume 90.4 FL (87-102); Mean Platelet Volume 8.7 FL (9.6-12.0); Monocytes # 0.8 10*3/uL (0.11-0.8); Neutrophils % 67.9 % (38.7-73.9); Platelet Count 236 T/CUMM (130-400); Red Blood Count 2.82 MC/CUMM (3.8-5.5); Red Cell Distribution Width 14.3 % (9.3-17.3)
[2021-10-06] MEDS: DULoxetine 30 MG CAPSULE PO SCH ×2 (08:50→20:38)
[2021-10-06] MEDS: VERAPAMIL SR 180 MG TABLET PO SCH ×2 (08:50→20:38)
[2021-10-06] MEDS: GABAPENTIN 300 MG CAPSULE PO SCH ×3 (08:50→20:38)
[2021-10-06] MEDS: DOCUSATE SODIUM 100 MG CAPSULE PO SCH ×2 (08:50→20:38)
[2021-10-06] MEDS: FERROUS SULFATE 325 MG TABLET PO SCH ×2 (08:50→16:51)
[2021-10-06] MEDS: DRONEDARONE 400 MG TABLET PO SCH ×2 (08:50→16:51)
[2021-10-06] MEDS: CYANOCOBALAMIN 500 MCG TABLET PO SCH (08:50)
[2021-10-06] MEDS: ASPIRIN EC 81 MG TABLET PO SCH (08:50)
[2021-10-06] MEDS: APIXABAN 5 MG TABLET PO SCH ×2 (08:50→20:38)
[2021-10-06] MEDS: CHOLECALCIFEROL 5,000 UNIT TABLET PO SCH (08:50)
[2021-10-06] MEDS: POLYETHYLENE GLYCOL POWDER 17 GM PACK PO SCH (08:51)
[2021-10-06 09:03] LABS: Calcium 7.9 MG/DL (8.5-10.1); Osmolality,Calculated 282.7 MOS/KG (273-304); Potassium 4.5 MMOL/L (3.5-5.1)
[2021-10-06] MEDS: LACTATED RINGERS 1,000 ML IV SCH ×2 (12:13→23:16)
[2021-10-06] MEDS: cefTRIAXone 2,000 MG in SODIUM CHLORIDE 0.9% 100 ML IV SCH (15:26)
[2021-10-07 05:53] LABS: Calcium 8.5 MG/DL (8.5-10.1); Osmolality,Calculated 275.8 MOS/KG (273-304); Potassium 4.1 MMOL/L (3.5-5.1)
[2021-10-07] MEDS: CYANOCOBALAMIN 500 MCG TABLET PO SCH (09:00)
[2021-10-07] MEDS: APIXABAN 5 MG TABLET PO SCH ×2 (09:00→20:57)
[2021-10-07] MEDS: DULoxetine 30 MG CAPSULE PO SCH ×2 (09:00→20:56)
[2021-10-07] MEDS: DRONEDARONE 400 MG TABLET PO SCH ×2 (09:00→16:36)
[2021-10-07] MEDS: FERROUS SULFATE 325 MG TABLET PO SCH ×2 (09:00→16:36)
[2021-10-07] MEDS: GABAPENTIN 300 MG CAPSULE PO SCH ×3 (09:00→20:56)
[2021-10-07] MEDS: VERAPAMIL SR 180 MG TABLET PO SCH ×2 (09:00→20:56)
[2021-10-07] MEDS: CHOLECALCIFEROL 5,000 UNIT TABLET PO SCH (09:00)
[2021-10-07] MEDS: POLYETHYLENE GLYCOL POWDER 17 GM PACK PO SCH (09:00)
[2021-10-07] MEDS: ASPIRIN EC 81 MG TABLET PO SCH (09:00)
[2021-10-07] MEDS: DOCUSATE SODIUM 100 MG CAPSULE PO SCH ×2 (09:00→20:56)
[2021-10-07 12:47] LABS: Basophils % 0.2 % (0.0-0.8); Eosinophils # 0.3 10*3/uL (0.0-0.87); Hemoglobin 8.1 GM/DL (12.0-16.0); Immature Granulocytes % 0.7 %; Immature Granulocytes Absolute 0.07 #; Lymphocytes % 19.6 % (21.3-54.2); Mean Corpuscular HGB Conc 31.2 GM/DL (32-36); Mean Corpuscular Volume 90.9 FL (87-102); Monocytes # 0.9 10*3/uL (0.11-0.8); Monocytes % 8.9 % (1.7-12.7); Neutrophils % 67.6 % (38.7-73.9); Platelet Count 280 T/CUMM (130-400); Red Blood Count 2.86 MC/CUMM (3.8-5.5); Red Cell Distribution Width 14.2 % (9.3-17.3); White Blood Count 10.4 T/CUMM (4-12)
[2021-10-07] MEDS: cefTRIAXone 2,000 MG in SODIUM CHLORIDE 0.9% 100 ML IV SCH (14:04)
[2021-10-07] MEDS: LACTATED RINGERS 1,000 ML IV SCH (14:06)
[2021-10-07] MEDS: ZALEPLON 5 MG CAPSULE PO PRN (20:56)
[2021-10-08] MEDS: LACTATED RINGERS 1,000 ML IV SCH (03:05)
[2021-10-08 06:09] LABS: Basophils # 0.1 10*3/uL (0.0-0.2); Basophils % 0.5 % (0.0-0.8); Eosinophils # 0.4 10*3/uL (0.0-0.87); Eosinophils % 3.8 % (0.00-10.9); Hematocrit 24.8 VOL% (35.7-47.0); Hemoglobin 7.7 GM/DL (12.0-16.0); Immature Granulocytes % 0.9 %; Immature Granulocytes Absolute 0.09 #; Lymphocytes # 2.4 10*3/uL (1.4-4.0); Lymphocytes % 23.8 % (21.3-54.2); Mean Corpuscular Volume 91.2 FL (87-102); Monocytes % 9.6 % (1.7-12.7); Neutrophils % 61.4 % (38.7-73.9); Platelet Count 287 T/CUMM (130-400); Red Blood Count 2.72 MC/CUMM (3.8-5.5); Red Cell Distribution Width 14.1 % (9.3-17.3)
[2021-10-08 06:35] LABS: Calcium 8.5 MG/DL (8.5-10.1); Osmolality,Calculated 277.7 MOS/KG (273-304); Potassium 3.8 MMOL/L (3.5-5.1)
[2021-10-08] MEDS ORDERED: SODIUM CHLORIDE 0.9% 1,000 ML IV PRN (07:26)
[2021-10-08 08:23] LABS: Sedimentation Rate-Westergren 104 MM/HR (0-30)
[2021-10-08] MEDS: GABAPENTIN 300 MG CAPSULE PO SCH ×3 (08:44→21:17)
[2021-10-08] MEDS: FUROSEMIDE 20 MG TABLET PO PRN (08:44)
[2021-10-08] MEDS: CYANOCOBALAMIN 500 MCG TABLET PO SCH (08:45)
[2021-10-08] MEDS: APIXABAN 5 MG TABLET PO SCH ×2 (08:45→21:17)
[2021-10-08] MEDS: ASPIRIN EC 81 MG TABLET PO SCH (08:47)
[2021-10-08] MEDS: FERROUS SULFATE 325 MG TABLET PO SCH ×2 (08:47→17:26)
[2021-10-08] MEDS: CHOLECALCIFEROL 5,000 UNIT TABLET PO SCH (08:47)
[2021-10-08] MEDS: VERAPAMIL SR 180 MG TABLET PO SCH ×2 (08:47→21:18)
[2021-10-08] MEDS: DOCUSATE SODIUM 100 MG CAPSULE PO SCH ×2 (08:48→21:18)
[2021-10-08] MEDS: DULoxetine 30 MG CAPSULE PO SCH ×2 (08:48→21:18)
[2021-10-08] MEDS: DRONEDARONE 400 MG TABLET PO SCH ×2 (09:19→17:26)
[2021-10-08] MEDS: POLYETHYLENE GLYCOL POWDER 17 GM PACK PO SCH (09:20)
[2021-10-08] MEDS: LEVALBUTEROL 0.63 MG/3 ML NEB RESP TX PRN (13:37)
[2021-10-08] MEDS ORDERED: FUROSEMIDE 20 MG/2 ML VIAL IV ONE (16:57)
[2021-10-08] MEDS: traMADol 50 MG TABLET PO PRN (17:26)
[2021-10-08] MEDS: ZALEPLON 5 MG CAPSULE PO PRN (21:17)
[2021-10-08] MEDS: tiZANidine 4 MG TABLET PO PRN (21:18)
[2021-10-09] MEDS: ACETAMINOPHEN 325 MG TABLET PO PRN (00:32)
[2021-10-09] MEDS: traMADol 50 MG TABLET PO PRN (00:33)
[2021-10-09 06:22] LABS: Basophils % 0.4 % (0.0-0.8); Eosinophils # 0.4 10*3/uL (0.0-0.87); Eosinophils % 3.8 % (0.00-10.9); Hematocrit 28.1 VOL% (35.7-47.0); Hemoglobin 9.1 GM/DL (12.0-16.0); Immature Granulocytes % 0.9 %; Immature Granulocytes Absolute 0.08 #; Lymphocytes # 1.8 10*3/uL (1.4-4.0); Lymphocytes % 19.3 % (21.3-54.2); Mean Corpuscular HGB Conc 32.4 GM/DL (32-36); Mean Corpuscular Volume 88.9 FL (87-102); Mean Platelet Volume 8.5 FL (9.6-12.0); Monocytes # 0.7 10*3/uL (0.11-0.8); Monocytes % 7.9 % (1.7-12.7); Neutrophils % 67.7 % (38.7-73.9); Platelet Count 285 T/CUMM (130-400); Red Blood Count 3.16 MC/CUMM (3.8-5.5); White Blood Count 9.4 T/CUMM (4-12)
[2021-10-09] MEDS: ASPIRIN EC 81 MG TABLET PO SCH (08:54)
[2021-10-09] MEDS: DULoxetine 30 MG CAPSULE PO SCH (08:54)
[2021-10-09] MEDS: DOCUSATE SODIUM 100 MG CAPSULE PO SCH (08:55)
[2021-10-09] MEDS: VERAPAMIL SR 180 MG TABLET PO SCH (08:55)
[2021-10-09] MEDS: DRONEDARONE 400 MG TABLET PO SCH (08:55)
[2021-10-09] MEDS: GABAPENTIN 300 MG CAPSULE PO SCH (08:55)
[2021-10-09] MEDS: CHOLECALCIFEROL 5,000 UNIT TABLET PO SCH (08:55)
[2021-10-09] MEDS: FERROUS SULFATE 325 MG TABLET PO SCH (08:55)
[2021-10-09] MEDS: CYANOCOBALAMIN 500 MCG TABLET PO SCH (08:55)
[2021-10-09] MEDS: POLYETHYLENE GLYCOL POWDER 17 GM PACK PO SCH (08:55)
[2021-10-09] MEDS: APIXABAN 5 MG TABLET PO SCH (08:55)
[2021-10-09 11:54] VITALS: BP 123/71
== END 2021-10-09 14:09 | disposition swing bed (61) | DRG 469 ==
LOC: N.OR 05:36 → N.SDSINP 05:37 → N.3E 15:33
PROVIDERS: ADMIT Orthopaedic Surgery; ATTEND Orthopaedic Surgery

== ENCOUNTER 2021-12-20 23:25 | Inpatient (IN) ==
[2021-12-21] MEDS ORDERED: HYDROmorphone 1 MG/1 ML SYRINGE IV STA (04:51)
[2021-12-21] MEDS ORDERED: PANTOPRAZOLE 40 MG VIAL IV STA (04:51)
[2021-12-21] MEDS ORDERED: ONDANSETRON 4 MG/2 ML VIAL IV STA (04:51)
[2021-12-21] MEDS ORDERED: SODIUM CHLORIDE 0.9% 500 ML IV STA (04:51)
[2021-12-21 06:14] LABS: Basophils # 0.1 10*3/uL (0.0-0.2); Basophils % 0.7 % (0.0-0.8); Eosinophils # 0.1 10*3/uL (0.0-0.87); Eosinophils % 1.7 % (0.00-10.9); Hematocrit 36.5 VOL% (35.7-47.0); Hemoglobin 11.1 GM/DL (12.0-16.0); Immature Granulocytes % 0.6 %; Immature Granulocytes Absolute 0.04 #; Lymphocytes # 1.8 10*3/uL (1.4-4.0); Lymphocytes % 25.1 % (21.3-54.2); Mean Corpuscular HGB Conc 30.4 GM/DL (32-36); Mean Corpuscular Volume 92.9 FL (87-102); Mean Platelet Volume 10.3 FL (9.6-12.0); Monocytes # 0.8 10*3/uL (0.11-0.8); Monocytes % 10.8 % (1.7-12.7); Neutrophils % 61.1 % (38.7-73.9); Platelet Count 158 T/CUMM (130-400); Red Blood Count 3.93 MC/CUMM (3.8-5.5); Red Cell Distribution Width 16.6 % (9.3-17.3); White Blood Count 7.1 T/CUMM (4-12)
[2021-12-21 06:24] LABS: Albumin 3.3 G/DL (3.4-5.0); Bilirubin,Total 1.8 MG/DL (0.20-1.00); Calcium 9.4 MG/DL (8.5-10.1); Osmolality,Calculated 278.4 MOS/KG (273-304); Potassium 4.8 MMOL/L (3.5-5.1); Total Protein 6.7 G/DL (6.4-8.2)
[2021-12-21] MEDS ORDERED: DILTIAZEM 25 MG/5 ML VIAL IV STA (09:49)
[2021-12-21] MEDS ORDERED: GLUCAGON 1 MG VIAL IM PRN (09:54)
[2021-12-21] MEDS ORDERED: ACETAMINOPHEN 325 MG TABLET PO PRN (09:54)
[2021-12-21] MEDS ORDERED: ONDANSETRON 4 MG/2 ML VIAL IV PRN (09:54)
[2021-12-21] MEDS ORDERED: DEXTROSE 10% 250 ML BAG IV PRN (09:59)
[2021-12-21] MEDS: DILTIAZEM INJ 100 MG in SODIUM CHLORIDE 0.9% 100 ML IV SCH ×2 (10:32→22:06)
[2021-12-21] MEDS: VERAPAMIL SR 180 MG TABLET PO SCH (12:00)
[2021-12-21 12:05] LABS: Mucus,Urine Few /LPF (Occasional); Squamous Epithelial Cell,Urine Occasional /HPF (0-10)
[2021-12-21 12:06] LABS: Bilirubin,Urine Small mg/dL (Negative); Blood, Urine Small mg/dL (Negative); Glucose,Urine (UA) Negative (Negative); Ketones,Urine Trace mg/dL (Negative); Nitrite,Urine Negative (Negative); Protein,Urine Trace mg/dL (Negative); Urine Appearance Clear (Clear); Urine Color Yellow (Yellow); Urine pH 5.5 (4.5-8.0)
[2021-12-21] MEDS: INSULIN LISPRO 100 UNIT/ML SUBCUT SCH ×3 (12:59→21:06)
[2021-12-21 13:36] LABS: Hepatitis B Core IgM Quant < 0.05 Index; Hepatitis B Surface Ag Quant < 0.10 Index; Hepatitis B Surface Ag Result Non-Reactive (NonReactive); Hepatitis C Virus Ab Quant 0.12 Index; Hepatitis C Virus Ab Result Non-Reactive (NonReactive)
[2021-12-21] MEDS: metroNIDAZOLE INJ 500 MG/100 ML PREMIX IV SCH (15:29)
[2021-12-21] MEDS: DRONEDARONE 400 MG TABLET PO SCH ×2 (15:29→17:15)
[2021-12-21] MEDS ORDERED: tiZANidine 4 MG TABLET PO PRN (17:45)
[2021-12-21] MEDS: DULoxetine 30 MG CAPSULE PO SCH (21:04)
[2021-12-21] MEDS: GABAPENTIN 300 MG CAPSULE PO SCH (21:05)
[2021-12-21] MEDS: DICYCLOMINE 20 MG TABLET PO SCH (21:24)
[2021-12-22] MEDS: traMADol 50 MG TABLET PO PRN ×2 (00:33→09:34)
[2021-12-22] MEDS: VERAPAMIL SR 180 MG TABLET PO SCH ×3 (00:33→22:01)
[2021-12-22] MEDS: metroNIDAZOLE INJ 500 MG/100 ML PREMIX IV SCH ×2 (03:02→14:49)
[2021-12-22 04:47] LABS: Basophils % 0.4 % (0.0-0.8); Eosinophils % 0.4 % (0.00-10.9); Hematocrit 35.7 VOL% (35.7-47.0); Immature Granulocytes % 0.6 %; Immature Granulocytes Absolute 0.06 #; Lymphocytes # 1.4 10*3/uL (1.4-4.0); Lymphocytes % 14.7 % (21.3-54.2); Mean Corpuscular HGB Conc 30.8 GM/DL (32-36); Mean Corpuscular Volume 92.2 FL (87-102); Mean Platelet Volume 9.9 FL (9.6-12.0); Monocytes # 0.9 10*3/uL (0.11-0.8); Monocytes % 9.1 % (1.7-12.7); NRBC # 0.02 10*3/uL; Neutrophils % 74.8 % (38.7-73.9); Platelet Count 154 T/CUMM (130-400); Red Blood Count 3.87 MC/CUMM (3.8-5.5); Red Cell Distribution Width 16.6 % (9.3-17.3); White Blood Count 9.6 T/CUMM (4-12)
[2021-12-22 05:06] LABS: Calcium 8.3 MG/DL (8.5-10.1); Osmolality,Calculated 275.8 MOS/KG (273-304); Potassium 5.1 MMOL/L (3.5-5.1)
[2021-12-22] MEDS: DILTIAZEM INJ 100 MG in SODIUM CHLORIDE 0.9% 100 ML IV SCH ×2 (06:57→17:50)
[2021-12-22] MEDS ORDERED: FUROSEMIDE 40 MG/4 ML VIAL IV ONE (07:57)
[2021-12-22] MEDS: INSULIN LISPRO 100 UNIT/ML SUBCUT SCH ×4 (08:19→22:01)
[2021-12-22] MEDS ORDERED: VALSARTAN 80 MG TABLET PO SCH (09:00)
[2021-12-22] MEDS: APIXABAN 5 MG TABLET PO SCH ×2 (09:33→22:00)
[2021-12-22] MEDS: DULoxetine 30 MG CAPSULE PO SCH ×2 (09:33→22:00)
[2021-12-22] MEDS: GABAPENTIN 300 MG CAPSULE PO SCH ×3 (09:33→22:00)
[2021-12-22] MEDS: DICYCLOMINE 20 MG TABLET PO SCH ×2 (09:40→22:00)
[2021-12-23] MEDS: metroNIDAZOLE INJ 500 MG/100 ML PREMIX IV SCH ×2 (02:31→13:49)
[2021-12-23 07:29] LABS: Calcium 8.3 MG/DL (8.5-10.1); Osmolality,Calculated 275.1 MOS/KG (273-304); Potassium 4.5 MMOL/L (3.5-5.1)
[2021-12-23] MEDS ORDERED: FUROSEMIDE 20 MG/2 ML VIAL IV ONE (07:35)
[2021-12-23 07:45] LABS: Basophils % 0.1 % (0.0-0.8); Hematocrit 34.8 VOL% (35.7-47.0); Hemoglobin 10.5 GM/DL (12.0-16.0); Immature Granulocytes % 0.9 %; Lymphocytes # 1.2 10*3/uL (1.4-4.0); Lymphocytes % 5.4 % (21.3-54.2); Mean Corpuscular HGB Conc 30.2 GM/DL (32-36); Mean Corpuscular Volume 96.1 FL (87-102); Mean Platelet Volume 10.9 FL (9.6-12.0); Monocytes # 1.2 10*3/uL (0.11-0.8); Monocytes % 5.3 % (1.7-12.7); Neutrophils % 88.3 % (38.7-73.9); Red Blood Count 3.62 MC/CUMM (3.8-5.5); Red Cell Distribution Width 17.1 % (9.3-17.3)
[2021-12-23 07:47] LABS: Platelet Count 88 T/CUMM (130-400)
[2021-12-23 07:54] LABS: Folate > 24.00 NG/ML (5.38-24.0); Vitamin B12 > 2000 PG/ML (211-911)
[2021-12-23] MEDS ORDERED: SODIUM CHLORIDE 0.9% 1,000 ML IV SCH (08:00)
[2021-12-23 08:57] LABS: Lymphocytes 6 % (20-55); Total Cells Counted 100
[2021-12-23 08:58] LABS: Polychromasia Few
[2021-12-23 09:07] LABS: Microcytosis Slight
[2021-12-23 09:08] LABS: Platelet Estimate Adequate
[2021-12-23] MEDS: DULoxetine 30 MG CAPSULE PO SCH ×2 (09:39→21:52)
[2021-12-23] MEDS: VERAPAMIL SR 180 MG TABLET PO SCH ×2 (09:39→21:57)
[2021-12-23] MEDS: traMADol 50 MG TABLET PO PRN (09:45)
[2021-12-23] MEDS: GABAPENTIN 300 MG CAPSULE PO SCH ×3 (09:45→21:53)
[2021-12-23] MEDS: APIXABAN 5 MG TABLET PO SCH ×2 (09:45→21:53)
[2021-12-23] MEDS: DICYCLOMINE 20 MG TABLET PO SCH ×2 (09:47→21:53)
[2021-12-23] MEDS: INSULIN LISPRO 100 UNIT/ML SUBCUT SCH ×4 (09:47→22:00)
[2021-12-23] MEDS ORDERED: SODIUM CHLORIDE 0.9% 1,000 ML IV ONE (10:24)
[2021-12-23] MEDS ORDERED: QUEtiapine 25 MG TABLET PO SCH (11:00)
[2021-12-23 11:08] LABS: Arterial Base Excess iSTAT -6 MMOL/L (-2.5-2.5); Arterial Bicarbonate iSTAT 21.2 MMOL/L (20-26); Arterial O2 Saturation iSTAT 68 % (95-100); Arterial PCO2 iSTAT 47 MM HG (35-48); Arterial PO2 iSTAT 41 MM HG (80-95); Arterial Total CO2 iSTAT 23 MMO/L (23-27); Arterial pH iSTAT 7.262 (7.35-7.45)
[2021-12-23 11:45] LABS: Basophils % 0.1 % (0.0-0.8); Hematocrit 35.7 VOL% (35.7-47.0); Hemoglobin 10.7 GM/DL (12.0-16.0); Immature Granulocytes % 0.9 %; Immature Granulocytes Absolute 0.19 #; Lymphocytes # 1.2 10*3/uL (1.4-4.0); Lymphocytes % 5.9 % (21.3-54.2); Mean Corpuscular Volume 94.2 FL (87-102); Mean Platelet Volume 11.4 FL (9.6-12.0); Monocytes # 0.8 10*3/uL (0.11-0.8); Monocytes % 4.1 % (1.7-12.7); NRBC # 0.15 10*3/uL; Platelet Count 91 T/CUMM (130-400); Red Blood Count 3.79 MC/CUMM (3.8-5.5); Red Cell Distribution Width 17.1 % (9.3-17.3); White Blood Count 20.2 T/CUMM (4-12)
[2021-12-23 12:09] LABS: Lymphocytes 5 % (20-55); Total Cells Counted 100
[2021-12-23 12:10] LABS: Polychromasia 1+
[2021-12-23 12:47] LABS: Albumin 3.2 G/DL (3.4-5.0); Bilirubin,Direct 1.84 MG/DL (0.0-0.20); Bilirubin,Indirect 1.6 MG/DL (0.0-1.0); Bilirubin,Total 3.4 MG/DL (0.20-1.00); Total Protein 6.3 G/DL (6.4-8.2)
[2021-12-23] MEDS: LACTULOSE 20 GM/30 ML UDCUP PO SCH ×2 (13:47→21:52)
[2021-12-23] MEDS: DIAZEPAM 2 MG TABLET PO SCH ×2 (13:48→21:53)
[2021-12-23 13:53] LABS: % Iron Saturation 12.3 % (18-50)
[2021-12-23 14:03] LABS: INR 2.9; PT Patient Result 29.3 SECS (10.5-12.0)
[2021-12-23] MEDS: CEFEPIME 1,000 MG in SODIUM CHLORIDE 0.9% 100 ML IV SCH (15:40)
[2021-12-23] MEDS: SODIUM BICARB INJ 50 MEQ in SODIUM CHLORIDE 0.45% 1,000 ML IV SCH (17:11)
[2021-12-23] MEDS: QUEtiapine 25 MG TABLET PO SCH (21:53)
[2021-12-24] MEDS: metroNIDAZOLE INJ 500 MG/100 ML PREMIX IV SCH ×2 (02:49→13:12)
[2021-12-24] MEDS: CEFEPIME 1,000 MG in SODIUM CHLORIDE 0.9% 100 ML IV SCH ×2 (03:56→16:44)
[2021-12-24 05:20] LABS: Basophils % 0.3 % (0.0-0.8); Eosinophils # 0.1 10*3/uL (0.0-0.87); Eosinophils % 0.7 % (0.00-10.9); Hematocrit 33.4 VOL% (35.7-47.0); Immature Granulocytes % 0.7 %; Immature Granulocytes Absolute 0.08 #; Lymphocytes # 0.9 10*3/uL (1.4-4.0); Lymphocytes % 8.6 % (21.3-54.2); Mean Corpuscular HGB Conc 29.9 GM/DL (32-36); Mean Corpuscular Volume 94.6 FL (87-102); Mean Platelet Volume 10.7 FL (9.6-12.0); Monocytes # 0.4 10*3/uL (0.11-0.8); Monocytes % 3.6 % (1.7-12.7); NRBC # 0.08 10*3/uL; Neutrophils % 86.1 % (38.7-73.9); Platelet Count 108 T/CUMM (130-400); Red Blood Count 3.53 MC/CUMM (3.8-5.5); Red Cell Distribution Width 17.1 % (9.3-17.3); White Blood Count 10.8 T/CUMM (4-12)
[2021-12-24 05:29] LABS: INR 3.5
[2021-12-24 05:53] LABS: Albumin 2.8 G/DL (3.4-5.0); Bilirubin,Total 2.4 MG/DL (0.20-1.00); Calcium 7.2 MG/DL (8.5-10.1); Osmolality,Calculated 285.8 MOS/KG (273-304); Potassium 3.6 MMOL/L (3.5-5.1); Total Protein 5.3 G/DL (6.4-8.2)
[2021-12-24] MEDS: SODIUM BICARB INJ 50 MEQ in SODIUM CHLORIDE 0.45% 1,000 ML IV SCH ×2 (06:29→08:25)
[2021-12-24 07:42] LABS: Arterial Base Excess iSTAT -6 MMOL/L (-2.5-2.5); Arterial Bicarbonate iSTAT 20.8 MMOL/L (20-26); Arterial O2 Saturation iSTAT 92 % (95-100); Arterial PCO2 iSTAT 45 MM HG (35-48); Arterial PO2 iSTAT 72 MM HG (80-95); Arterial Total CO2 iSTAT 22 MMO/L (23-27); Arterial pH iSTAT 7.272 (7.35-7.45)
[2021-12-24] MEDS ORDERED: SODIUM CHLORIDE 0.9% 1,000 ML IV ONE ×2 (07:55→13:47)
[2021-12-24] MEDS ORDERED: SODIUM BICARB INJ 100 MEQ in SODIUM CHLORIDE 0.45% 1,000 ML IV SCH (08:03)
[2021-12-24] MEDS: INSULIN LISPRO 100 UNIT/ML SUBCUT SCH ×4 (08:37→20:04)
[2021-12-24] MEDS: QUEtiapine 25 MG TABLET PO SCH (08:57)
[2021-12-24] MEDS: LACTULOSE 20 GM/30 ML UDCUP PO SCH (09:46)
[2021-12-24] MEDS: DICYCLOMINE 20 MG TABLET PO SCH (09:46)
[2021-12-24] MEDS: GABAPENTIN 300 MG CAPSULE PO SCH (09:47)
[2021-12-24] MEDS: DULoxetine 30 MG CAPSULE PO SCH (09:47)
[2021-12-24] MEDS: DIAZEPAM 2 MG TABLET PO SCH (09:47)
[2021-12-24] MEDS: VERAPAMIL SR 180 MG TABLET PO SCH (09:51)
[2021-12-24] MEDS ORDERED: FUROSEMIDE 40 MG/4 ML VIAL IV PRN (10:49)
[2021-12-24] MEDS: DOPamine 800 MG/250 ML PREMIX IV PRN (14:08)
[2021-12-24] MEDS ORDERED: DOPamine 800 MG/250 ML PREMIX IV ONE (14:08)
[2021-12-24] MEDS ORDERED: CALCIUM GLUCONATE RIDER 1,000 MG/50 ML PREMIX IV ONE (14:11)
[2021-12-24] MEDS ORDERED: CALCIUM GLUCONATE 1,000 MG/10 ML VIAL IV ONE (14:11)
[2021-12-24 14:40] LABS: Arterial Base Excess iSTAT -7 MMOL/L (-2.5-2.5); Arterial Bicarbonate iSTAT 19.7 MMOL/L (20-26); Arterial O2 Saturation iSTAT 99 % (95-100); Arterial PCO2 iSTAT 42 MM HG (35-48); Arterial PO2 iSTAT 132 MM HG (80-95); Arterial Total CO2 iSTAT 21 MMO/L (23-27); Arterial pH iSTAT 7.276 (7.35-7.45)
[2021-12-24] MEDS ORDERED: NOREPINEPHRINE 4 MG/4 ML VIAL IV ONE (15:02)
[2021-12-24] MEDS: NOREPINEPHRINE 8 MG in SODIUM CHLORIDE 0.9% 242 ML IV PRN ×2 (15:06→19:59)
[2021-12-24 15:24] LABS: Basophils % 0.2 % (0.0-0.8); Eosinophils # 0.1 10*3/uL (0.0-0.87); Eosinophils % 1.6 % (0.00-10.9); Hematocrit 32.6 VOL% (35.7-47.0); Hemoglobin 9.7 GM/DL (12.0-16.0); Immature Granulocytes Absolute 0.08 #; Lymphocytes # 1.2 10*3/uL (1.4-4.0); Mean Corpuscular HGB Conc 29.8 GM/DL (32-36); Mean Platelet Volume 10.4 FL (9.6-12.0); Monocytes # 0.5 10*3/uL (0.11-0.8); Monocytes % 5.4 % (1.7-12.7); NRBC # 0.15 10*3/uL; Neutrophils % 77.8 % (38.7-73.9); Platelet Count 101 T/CUMM (130-400); Red Blood Count 3.43 MC/CUMM (3.8-5.5); Red Cell Distribution Width 17.2 % (9.3-17.3); White Blood Count 8.4 T/CUMM (4-12)
[2021-12-24 16:08] LABS: Albumin 2.5 G/DL (3.4-5.0); Bilirubin,Total 2.1 MG/DL (0.20-1.00); Calcium 7.3 MG/DL (8.5-10.1); Potassium 3.6 MMOL/L (3.5-5.1); Total Protein 5.1 G/DL (6.4-8.2)
[2021-12-24] MEDS: SODIUM BICARB INJ 100 MEQ in DEXTROSE 5% 1,000 ML IV SCH (16:44)
[2021-12-24] MEDS ORDERED: QUEtiapine 25 MG TABLET PO SCH (19:00)
[2021-12-24 23:21] LABS: Glucose,Urine (UA) Negative (Negative); Hyaline Casts,Urine 7 /LPF (0-3); Ketones,Urine Negative (Negative); Mucus,Urine Occasional /LPF (Occasional); Nitrite,Urine Negative (Negative); Protein,Urine >=300 mg/dL (Negative); RBC,Urine 377 /HPF (0-4); Urine Appearance SL CLOUDY (Clear); Urine Color Yellow (Yellow)
[2021-12-24 23:22] LABS: Bilirubin,Urine Negative (Negative); Blood, Urine Large mg/dL (Negative); Urine Urobilinogen 0.2 eU/dL (<2.0)
[2021-12-25] MEDS: metroNIDAZOLE INJ 500 MG/100 ML PREMIX IV SCH ×2 (00:07→14:55)
[2021-12-25] MEDS: NOREPINEPHRINE 8 MG in SODIUM CHLORIDE 0.9% 242 ML IV PRN ×4 (01:45→19:12)
[2021-12-25] MEDS: CEFEPIME 1,000 MG in SODIUM CHLORIDE 0.9% 100 ML IV SCH ×2 (02:47→16:38)
[2021-12-25] MEDS: DOPamine 800 MG/250 ML PREMIX IV PRN (03:40)
[2021-12-25 03:47] LABS: ABG HCO3 19.4 MMOL/L (20-26); ABG Oxygen Saturation 96.4 % (95-100); ABG PCO2 43.5 MM HG (35-48); ABG PH 7.282 (7.35-7.45); ABG PO2 94.4 MM HG (80-95); ABG TCO2 18.8 MMOL/L (23-27); Basophils % 0.2 % (0.0-0.8); Eosinophils # 0.1 10*3/uL (0.0-0.87); Eosinophils % 0.4 % (0.00-10.9); Hematocrit 35.8 VOL% (35.7-47.0); Hemoglobin 11.1 GM/DL (12.0-16.0); Immature Granulocytes % 1.6 %; Immature Granulocytes Absolute 0.22 #; Lymphocytes # 1.3 10*3/uL (1.4-4.0); Lymphocytes % 9.3 % (21.3-54.2); Mean Corpuscular Volume 91.3 FL (87-102); Mean Platelet Volume 9.4 FL (9.6-12.0); Monocytes # 0.8 10*3/uL (0.11-0.8); Monocytes % 5.8 % (1.7-12.7); NRBC # 0.25 10*3/uL; Neutrophils % 82.7 % (38.7-73.9); Platelet Count 163 T/CUMM (130-400); Red Blood Count 3.92 MC/CUMM (3.8-5.5); Red Cell Distribution Width 17.2 % (9.3-17.3); White Blood Count 14.1 T/CUMM (4-12)
[2021-12-25 04:04] LABS: INR 2.9; PT Patient Result 29.6 SECS (10.5-12.0)
[2021-12-25 04:07] LABS: Calcium 7.4 MG/DL (8.5-10.1); Osmolality,Calculated 293.8 MOS/KG (273-304); Potassium 3.4 MMOL/L (3.5-5.1)
[2021-12-25 04:11] LABS: Phosphorous 4.6 MG/DL (2.5-4.9); Uric Acid 11.8 MG/DL (2.6-6.0)
[2021-12-25 04:18] LABS: Albumin 2.8 G/DL (3.4-5.0); Bilirubin,Total 2.2 MG/DL (0.20-1.00); Calcium 7.3 MG/DL (8.5-10.1); Osmolality,Calculated 293.8 MOS/KG (273-304); Potassium 3.4 MMOL/L (3.5-5.1); Total Protein 6.3 G/DL (6.4-8.2)
[2021-12-25] MEDS: POTASSIUM CHLORIDE RIDER 10 MEQ/100 ML PREMIX IV PRN (04:47)
[2021-12-25] MEDS: POTASSIUM CHLORIDE RIDER 20 MEQ/100 ML PREMIX IV PRN (05:47)
[2021-12-25] MEDS: SODIUM BICARB INJ 100 MEQ in DEXTROSE 5% 1,000 ML IV SCH ×2 (06:38→20:20)
[2021-12-25] MEDS: INSULIN LISPRO 100 UNIT/ML SUBCUT SCH ×4 (07:25→20:06)
[2021-12-25] MEDS ORDERED: VERAPAMIL SR 180 MG TABLET PO SCH (09:00)
[2021-12-25] MEDS ORDERED: LACTULOSE 20 GM/30 ML UDCUP PO ONE (10:42)
[2021-12-25] MEDS ORDERED: NOREPINEPHRINE 4 MG/4 ML VIAL IV ONE (12:16)
[2021-12-25 14:38] LABS: Mitochondrial Antibody (M2) <0.1 U
[2021-12-25] MEDS ORDERED: ALBUTEROL/IPRATROPIUM 3 ML NEB RESP TX PRN (22:00)
[2021-12-26] MEDS: metroNIDAZOLE INJ 500 MG/100 ML PREMIX IV SCH (00:13)
[2021-12-26] MEDS: CEFEPIME 1,000 MG in SODIUM CHLORIDE 0.9% 100 ML IV SCH (02:39)
[2021-12-26 02:56] LABS: Basophils % 0.2 % (0.0-0.8); Eosinophils # 0.2 10*3/uL (0.0-0.87); Eosinophils % 1.6 % (0.00-10.9); Hematocrit 30.8 VOL% (35.7-47.0); Hemoglobin 9.7 GM/DL (12.0-16.0); Immature Granulocytes % 0.8 %; Immature Granulocytes Absolute 0.08 #; Lymphocytes # 1.3 10*3/uL (1.4-4.0); Lymphocytes % 12.7 % (21.3-54.2); Mean Corpuscular HGB Conc 31.5 GM/DL (32-36); Mean Corpuscular Volume 89.3 FL (87-102); Mean Platelet Volume 9.7 FL (9.6-12.0); Monocytes # 0.6 10*3/uL (0.11-0.8); Monocytes % 6.1 % (1.7-12.7); NRBC # 0.03 10*3/uL; Neutrophils % 78.6 % (38.7-73.9); Platelet Count 112 T/CUMM (130-400); Red Blood Count 3.45 MC/CUMM (3.8-5.5); Red Cell Distribution Width 17.2 % (9.3-17.3); White Blood Count 9.8 T/CUMM (4-12)
[2021-12-26 03:20] LABS: Calcium 7.2 MG/DL (8.5-10.1); Osmolality,Calculated 296.5 MOS/KG (273-304); Potassium 3.6 MMOL/L (3.5-5.1)
[2021-12-26 03:43] LABS: Albumin 2.3 G/DL (3.4-5.0); Bilirubin,Total 2.2 MG/DL (0.20-1.00); Calcium 7.1 MG/DL (8.5-10.1); Osmolality,Calculated 292.7 MOS/KG (273-304); Potassium 3.7 MMOL/L (3.5-5.1)
[2021-12-26 03:46] LABS: ABG Base Excess -2.5 MMOL/L (-2.5-2.5); ABG HCO3 22.3 MMOL/L (20-26); ABG Oxygen Saturation 95.4 % (95-100); ABG PCO2 41.2 MM HG (35-48); ABG PH 7.353 (7.35-7.45); ABG PO2 80.8 MM HG (80-95)
[2021-12-26] MEDS: INSULIN LISPRO 100 UNIT/ML SUBCUT SCH ×4 (07:38→21:32)
[2021-12-26] MEDS: methylPREDNISolone SOD SUC 40 MG/1 ML VIAL IV SCH ×2 (08:28→15:33)
[2021-12-26] MEDS: LEVALBUTEROL 1.25 MG/3 ML NEB RESP TX SCH ×4 (08:37→20:36)
[2021-12-26] MEDS: SODIUM BICARB INJ 100 MEQ in DEXTROSE 5% 1,000 ML IV SCH (11:28)
[2021-12-26] MEDS: NOREPINEPHRINE 8 MG in SODIUM CHLORIDE 0.9% 242 ML IV PRN (11:55)
[2021-12-26 13:56] LABS: Antinuclear Ab, S 3.6 U
[2021-12-26 14:26] LABS: Myeloperoxidase Antibody < 0.2 U
[2021-12-26 14:26] LABS: Smooth Muscle Antibody Negative (Negative)
[2021-12-26] MEDS ORDERED: FUROSEMIDE 40 MG/4 ML VIAL IV ONE (17:30)
[2021-12-26] MEDS: DIAZEPAM 10 MG/2 ML SYRINGE IV PRN ×2 (18:05→22:23)
[2021-12-27] MEDS: LEVALBUTEROL 1.25 MG/3 ML NEB RESP TX SCH ×7 (00:05→22:40)
[2021-12-27] MEDS: methylPREDNISolone SOD SUC 40 MG/1 ML VIAL IV SCH ×3 (01:11→15:32)
[2021-12-27] MEDS ORDERED: CEFEPIME 1,000 MG in SODIUM CHLORIDE 0.9% 100 ML IV SCH (04:00)
[2021-12-27 04:36] LABS: Basophils % 0.1 % (0.0-0.8); Hematocrit 30.6 VOL% (35.7-47.0); Hemoglobin 9.9 GM/DL (12.0-16.0); Immature Granulocytes % 0.5 %; Immature Granulocytes Absolute 0.04 #; Lymphocytes # 0.5 10*3/uL (1.4-4.0); Mean Corpuscular HGB Conc 32.4 GM/DL (32-36); Mean Corpuscular Volume 86.7 FL (87-102); Mean Platelet Volume 9.5 FL (9.6-12.0); Monocytes # 0.4 10*3/uL (0.11-0.8); Monocytes % 5.2 % (1.7-12.7); NRBC # 0.02 10*3/uL; Neutrophils % 88.2 % (38.7-73.9); Platelet Count 102 T/CUMM (130-400); Red Blood Count 3.53 MC/CUMM (3.8-5.5); Red Cell Distribution Width 17.2 % (9.3-17.3); White Blood Count 7.6 T/CUMM (4-12)
[2021-12-27 04:44] LABS: INR 1.7; PT Patient Result 17.8 SECS (10.5-12.0)
[2021-12-27 04:51] LABS: Albumin 2.1 G/DL (3.4-5.0); Bilirubin,Total 2.1 MG/DL (0.20-1.00); Calcium 7.9 MG/DL (8.5-10.1); Osmolality,Calculated 301.5 MOS/KG (273-304); Potassium 3.5 MMOL/L (3.5-5.1); Total Protein 5.5 G/DL (6.4-8.2)
[2021-12-27 04:54] LABS: Calcium 7.6 MG/DL (8.5-10.1); Osmolality,Calculated 300.5 MOS/KG (273-304); Potassium 3.5 MMOL/L (3.5-5.1)
[2021-12-27] MEDS: DIAZEPAM 10 MG/2 ML SYRINGE IV PRN ×3 (04:54→20:59)
[2021-12-27] MEDS: INSULIN LISPRO 100 UNIT/ML SUBCUT SCH ×4 (07:55→20:25)
[2021-12-27] MEDS: SODIUM BICARB INJ 100 MEQ in DEXTROSE 5% 1,000 ML IV SCH (08:50)
[2021-12-27 09:52] LABS: Anti-Nuclear Antibody Pattern Speckled
[2021-12-27] MEDS: ERTAPENEM 500 MG in SODIUM CHLORIDE 0.9% 100 ML IV SCH (11:15)
[2021-12-27] MEDS ORDERED: FUROSEMIDE 40 MG/4 ML VIAL IV ONE (12:08)
[2021-12-27] MEDS ORDERED: POTASSIUM CHLORIDE 20 MEQ TABLET PO ONE (12:09)
[2021-12-27] MEDS: POTASSIUM CHLORIDE RIDER 20 MEQ/100 ML PREMIX IV PRN ×2 (12:30→14:30)
[2021-12-27 15:24] LABS: ABG Base Excess 1.4 MMOL/L (-2.5-2.5); ABG HCO3 25.6 MMOL/L (20-26); ABG Oxygen Saturation 94.1 % (95-100); ABG PCO2 62.5 MM HG (35-48); ABG PH 7.283 (7.35-7.45); ABG PO2 87.5 MM HG (80-95); ABG TCO2 27.1 MMOL/L (23-27)
[2021-12-28] MEDS: methylPREDNISolone SOD SUC 40 MG/1 ML VIAL IV SCH ×4 (00:14→23:43)
[2021-12-28] MEDS: DIAZEPAM 10 MG/2 ML SYRINGE IV PRN ×3 (01:09→13:35)
[2021-12-28] MEDS: LEVALBUTEROL 1.25 MG/3 ML NEB RESP TX SCH ×6 (02:42→23:38)
[2021-12-28 05:03] LABS: Basophils % 0.1 % (0.0-0.8); Hematocrit 32.6 VOL% (35.7-47.0); Hemoglobin 10.1 GM/DL (12.0-16.0); Immature Granulocytes % 0.4 %; Immature Granulocytes Absolute 0.04 #; Lymphocytes # 0.4 10*3/uL (1.4-4.0); Lymphocytes % 3.5 % (21.3-54.2); Mean Corpuscular Volume 88.3 FL (87-102); Mean Platelet Volume 9.5 FL (9.6-12.0); Monocytes # 0.6 10*3/uL (0.11-0.8); Monocytes % 5.5 % (1.7-12.7); NRBC # 0.04 10*3/uL; Neutrophils % 90.5 % (38.7-73.9); Platelet Count 91 T/CUMM (130-400); Red Blood Count 3.69 MC/CUMM (3.8-5.5); Red Cell Distribution Width 17.2 % (9.3-17.3)
[2021-12-28 05:03] LABS: ABG HCO3 28.9 MMOL/L (20-26); ABG Oxygen Saturation 93.7 % (95-100); ABG PCO2 46.3 MM HG (35-48); ABG PH 7.423 (7.35-7.45); ABG PO2 71.8 MM HG (80-95); ABG TCO2 27.3 MMOL/L (23-27)
[2021-12-28 05:19] LABS: Albumin 2.2 G/DL (3.4-5.0); Bilirubin,Total 1.7 MG/DL (0.20-1.00); Calcium 7.9 MG/DL (8.5-10.1); Osmolality,Calculated 308.1 MOS/KG (273-304); Potassium 3.3 MMOL/L (3.5-5.1); Total Protein 5.9 G/DL (6.4-8.2)
[2021-12-28 05:24] LABS: Lymphocytes 3 % (20-55); Nucleated Red Blood Cells 1 (0-5); Total Cells Counted 100
[2021-12-28 05:25] LABS: Platelet Estimate Normal; Target Cells Few
[2021-12-28] MEDS: POTASSIUM CHLORIDE RIDER 10 MEQ/100 ML PREMIX IV PRN ×2 (08:00→13:36)
[2021-12-28 08:22] LABS: INR 1.5; PT Patient Result 15.8 SECS (10.5-12.0)
[2021-12-28] MEDS: SODIUM BICARB INJ 100 MEQ in DEXTROSE 5% 1,000 ML IV SCH (08:25)
[2021-12-28] MEDS: INSULIN LISPRO 100 UNIT/ML SUBCUT SCH ×4 (08:25→20:04)
[2021-12-28] MEDS ORDERED: fentaNYL 100 MCG/2 ML VIAL IV ONE (10:30)
[2021-12-28] MEDS: METOPROLOL TARTRATE 5 MG/5 ML VIAL IV SCH ×3 (11:29→23:06)
[2021-12-28] MEDS: ERTAPENEM 500 MG in SODIUM CHLORIDE 0.9% 100 ML IV SCH (11:29)
[2021-12-28 11:43] LABS: Appearance,CSF Clear; Lymphocytes,CSF 36 %; Monocytes,CSF 17 %; Neutrophils,CSF 48 %; Red Blood Cell,CSF 303 C/CUMM; White Blood Cell,CSF 7 C/CUMM
[2021-12-28] MEDS: MORPHINE 2 MG/1 ML SYRINGE IV PRN (16:38)
[2021-12-29] MEDS: MORPHINE 2 MG/1 ML SYRINGE IV PRN ×8 (02:56→22:38)
[2021-12-29] MEDS: LEVALBUTEROL 1.25 MG/3 ML NEB RESP TX SCH ×7 (03:22→22:59)
[2021-12-29 03:35] LABS: Basophils % 0.1 % (0.0-0.8); Hematocrit 34.8 VOL% (35.7-47.0); Hemoglobin 11.1 GM/DL (12.0-16.0); Immature Granulocytes % 0.8 %; Lymphocytes # 0.3 10*3/uL (1.4-4.0); Lymphocytes % 2.5 % (21.3-54.2); Mean Corpuscular HGB Conc 31.9 GM/DL (32-36); Mean Corpuscular Volume 87.7 FL (87-102); Mean Platelet Volume 10.9 FL (9.6-12.0); Monocytes # 0.7 10*3/uL (0.11-0.8); Monocytes % 5.2 % (1.7-12.7); NRBC # 0.23 10*3/uL; Neutrophils % 91.4 % (38.7-73.9); Platelet Count 103 T/CUMM (130-400); Red Blood Count 3.97 MC/CUMM (3.8-5.5); Red Cell Distribution Width 17.2 % (9.3-17.3); White Blood Count 12.9 T/CUMM (4-12)
[2021-12-29 03:57] LABS: Lymphocytes 5 % (20-55); Nucleated Red Blood Cells 2 (0-5); Platelet Estimate Normal; Total Cells Counted 100
[2021-12-29 04:27] LABS: Albumin 2.3 G/DL (3.4-5.0); Bilirubin,Total 1.5 MG/DL (0.20-1.00); Calcium 8.4 MG/DL (8.5-10.1); Osmolality,Calculated 314.6 MOS/KG (273-304); Potassium 3.5 MMOL/L (3.5-5.1); Total Protein 6.2 G/DL (6.4-8.2)
[2021-12-29] MEDS: METOPROLOL TARTRATE 5 MG/5 ML VIAL IV SCH ×2 (05:23→12:52)
[2021-12-29] MEDS: methylPREDNISolone SOD SUC 40 MG/1 ML VIAL IV SCH ×2 (08:16→16:07)
[2021-12-29] MEDS: INSULIN LISPRO 100 UNIT/ML SUBCUT SCH ×4 (08:30→23:32)
[2021-12-29] MEDS: DIAZEPAM 10 MG/2 ML SYRINGE IV PRN (11:41)
[2021-12-29] MEDS: ERTAPENEM 500 MG in SODIUM CHLORIDE 0.9% 100 ML IV SCH (13:03)
[2021-12-30] MEDS: LEVALBUTEROL 1.25 MG/3 ML NEB RESP TX SCH ×2 (03:01→07:10)
[2021-12-30] MEDS: MORPHINE 2 MG/1 ML SYRINGE IV PRN ×9 (03:12→16:54)
[2021-12-30] MEDS: methylPREDNISolone SOD SUC 40 MG/1 ML VIAL IV SCH ×2 (03:13→07:51)
[2021-12-30] MEDS: DIAZEPAM 10 MG/2 ML SYRINGE IV PRN ×3 (07:51→16:57)
[2021-12-30] MEDS: INSULIN LISPRO 100 UNIT/ML SUBCUT SCH ×2 (08:39→11:37)
[2021-12-30 13:00] VITALS: BP 145/75
[2021-12-30] MEDS ORDERED: HALOPERIDOL 5 MG/ML AMP IM PRN (15:25)
== END 2021-12-30 18:04 | disposition hospice, inpatient (51) | DRG 308 ==
LOC: N.ED 23:25 → SUATTDRO 12-21 09:54 → N.EDINP 12-21 09:54 → N.TELES 12-21 12:47 → N.ICU 12-24 14:05 → N.5E 12-29 18:05
PROVIDERS: ADMIT Internal Medicine; ATTEND Internal Medicine

== ENCOUNTER 2021-12-30 17:00 | Inpatient (IN) ==
[2021-12-30] MEDS: MORPHINE 2 MG/1 ML SYRINGE IV PRN ×5 (18:44→23:06)
[2021-12-30] MEDS ORDERED: LORazepam 2 MG/1 ML VIAL IV PRN (19:32)
[2021-12-30] MEDS ORDERED: ACETAMINOPHEN 650 MG SUPP RECTAL PRN (19:32)
[2021-12-30] MEDS ORDERED: ONDANSETRON 4 MG/2 ML VIAL IV PRN (19:32)
[2021-12-30] MEDS ORDERED: ALBUTEROL/IPRATROPIUM 3 ML NEB RESP TX PRN (19:32)
[2021-12-30] MEDS ORDERED: HYOSCYAMINE 0.125 MG TABLET SL PRN (19:38)
[2021-12-30] MEDS ORDERED: DIAZEPAM 10 MG/2 ML SYRINGE IV PRN (21:29)
[2021-12-31] MEDS: MORPHINE 2 MG/1 ML SYRINGE IV PRN ×15 (01:32→17:38)
[2021-12-31] MEDS ORDERED: LORazepam 2 MG/1 ML VIAL IV PRN (11:04)
[2021-12-31 14:04] VITALS: BP 132/76
== END 2021-12-31 19:20 | disposition expired | DRG 951 ==
LOC: SUATTDRO 17:00 → N.5E 17:00
PROVIDERS: ADMIT Family Medicine; ATTEND Family Medicine